=== PATIENT | female | born 1975 | race Caucasian/White ===

== ENCOUNTER 2023-07-04 14:42 | Outpatient (OUT) | payer OTHER, SELFPAY ==
--- NOTE | 2023-07-04 | XR_ITS ---
The [address] [address] Patient Name: PRANAV PEREZ MRN: [id number] date: 1975 Sex: F Assigned Patient Location: [facility] Current Patient Location: Accession/Order Number: [id number] Exam Date: 07/04/2023 15:17 Report Date: 07/05/2023 11:37 At the request of: ALENA PETERSON Procedure: XR ankle EDY min 3V EXAMINATION: XR foot EDY min 3V, XR ankle EDY min 3V HISTORY: BILATERAL FOOT AND ANKLE PAIN , lateral left ankle pain, medial right foot pain COMPARISON: No relevant comparison available. FINDINGS: RIGHT FINDINGS: BONES: Small calcaneal plantar spur. No significant arthropathy or acute abnormality. SOFT TISSUES: No visible soft tissue swelling. OTHER: Negative. LEFT FINDINGS: BONES: Small calcaneal plantar spur. No significant arthropathy or acute abnormality. SOFT TISSUES: No visible soft tissue swelling. OTHER: Negative. XR/XR ankle EDY min 3V IMPRESSION: RIGHT CONCLUSION: No acute abnormality or significant degenerative changes of the ankle and foot. LEFT CONCLUSION: No acute abnormality or significant degenerative changes of the ankle and foot. Electronically authenticated by: PAMELA BAILON Date: 07/05/2023 11:37
--- NOTE | 2023-07-04 | XR_ITS ---
The [address] [address] Patient Name: PRANAV PEREZ MRN: [id number] date: 1975 Sex: F Assigned Patient Location: [facility] Current Patient Location: Accession/Order Number: [id number] Exam Date: 07/04/2023 15:00 Report Date: 07/05/2023 11:37 At the request of: ALENA PETERSON Procedure: XR foot EDY min 3V EXAMINATION: XR foot EDY min 3V, XR ankle EDY min 3V HISTORY: BILATERAL FOOT AND ANKLE PAIN , lateral left ankle pain, medial right foot pain COMPARISON: No relevant comparison available. FINDINGS: RIGHT FINDINGS: BONES: Small calcaneal plantar spur. No significant arthropathy or acute abnormality. SOFT TISSUES: No visible soft tissue swelling. OTHER: Negative. LEFT FINDINGS: BONES: Small calcaneal plantar spur. No significant arthropathy or acute abnormality. SOFT TISSUES: No visible soft tissue swelling. OTHER: Negative. XR/XR foot EDY min 3V IMPRESSION: RIGHT CONCLUSION: No acute abnormality or significant degenerative changes of the ankle and foot. LEFT CONCLUSION: No acute abnormality or significant degenerative changes of the ankle and foot. Electronically authenticated by: PAMELA BAILON Date: 07/05/2023 11:37
== END 2023-07-04 14:43 | disposition home or self-care (01) ==
LOC: RAD 14:43
PROVIDERS: Visit Provider Podiatrist Foot & Ankle Surgery
DX: M25.572 Pain in left ankle and joints of left foot (principal); M25.571 Pain in right ankle and joints of right foot; M79.672 Pain in left foot; M79.671 Pain in right foot; M77.31 Calcaneal spur, right foot; M77.32 Calcaneal spur, left foot
CPT/HCPCS: 73610; 73630

== ENCOUNTER 2024-04-17 13:47 | Outpatient (OUT) | payer OTHER, SELFPAY ==
--- NOTE | 2024-04-17 | XR_ITS ---
The [address] [address] Patient Name: PRANAV PEREZ MRN: [id number] date: 1975 Sex: F Assigned Patient Location: Current Patient Location: Accession/Order Number: [id number] Exam Date: 04/17/2024 13:48 Report Date: 04/22/2024 07:27 At the request of: ALENA PETERSON Procedure: XR foot RT min 3V PROCEDURE: XR foot RT min 3V COMPARISON: 07/04/2023 HISTORY: RIGHT FOOT PAIN FINDINGS: BONES:No fracture, acute abnormality, or significant arthropathy. Minimal enthesopathic spurring of the calcaneus at the Achilles and plantar insertions SOFT TISSUES:Negative. No visible soft tissue swelling. EFFUSION:None visible. OTHER: Negative. XR/XR foot RT min 3V IMPRESSION: No acute abnormality Electronically authenticated by: PREET BYRD Date: 04/22/2024 07:27
--- OUTSIDE RECORDS SUMMARY | 2024-04-17 14:01 | XMS_ITS | CCD ---
Author Organization [facility] Care Team Providers Care Events Associate Name Role Phone WENDY JOY Primary Care Unavailable TIANA ROSALES Referring Unavailable Wendy Joy Primary Care Provider Tere Solis Unavailable NON STAFF Primary Care Provider UnavailDO Matthew Rachel Attending Provider Kady Stout Unavailable MD Kady Stout Attending Provider [phone] NON STAFF Primary Care Provider UnavailMD Kady Méndez Attending Provider NON STAFF Primary Care Provider UnavailJaya Dupree Admitting Unavailable Jaya Abdi Attending Unavailable Kady Stout Primary Care Unavailable Kady Stout Admitting Unavailable Kady Stout Attending Unavailable NON STAFF Primary Care Unavailable Kady Stout Admitting Unavailable Kady Stout Attending Unavailable NON STAFF Primary Care Unavailable Matthew Thakkar Admitting Unavailable Peyman Matthew LINTON Attending Unavailable NON STAFF Primary Care Unavailable Allergies Allergy Classification Reported Allergen(s) Allergy Type Date of Onset Reaction(s) Facility (1 source) Ethinyl Estradiol / Etonogestrel Drug Allergy 1 [place], [place] (1 source) oxaprozin Drug Allergy 6 [place] (5 sources) Doxycycline Drug Allergy [facility] Conjure Other (1 source) Doxycycline Drug Allergy 4 [facility] Repository Medications Current Medications Medication Drug Class(es) Dates Sig (Normalized) Sig (Original) acetaminophen 500 mg / diphenhydrAMINE hydrochloride 25 mg oral tablet (1 source) Histamine-1 Receptor Antagonist take 25-500 mg by mouth once daily as needed diphenhydrAMINE- APAP, sleep, (TYLENOL PM EXTRA STRENGTH) 25-500 MG tablet Take 1 tablet by mouth nightly as needed for Sleep 0 Active [id number] 200 actuat albuterol 0.09 mg/actuat metered dose inhaler (6 sources) beta2-Adrenergic Agonist Start: 12-11-2023 take 1 puff(s) by inhalation every four hours Albuterol Sulfate Active 2 PUFF INHALATION Every 4 hours December 11, 2023 12:00am Start: 06-20-2022 take 2 puff(s) by in halation every four hours as needed Albuterol Sulfate HFA 108 (90 Base) MCG/ACT 2 puffs as needed Inhalation every 4 hrs Jun, Active Start: 06-20-2022 take 2 puff(s) by in halation every four hours as needed Albuterol Sulfate HFA 108 (90 Base) MCG/ACT 2 puffs as needed Inhalation every 4 hrs Jun, Active Start: 06-20-2022 take 2 puff(s) by in halation every four hours as needed Albuterol Sulfate HFA 108 (90 Base) MCG/ACT 2 puffs as needed Inhalation every 4 hrs Jun, Active Bioflavonoid Products (BIOFLEX PO) (1 source) take 2 tablets by mouth once daily Bioflavonoid Products (BIOFLEX PO) Take by mouth daily 2 tabs OTC 0 Active CALCIUM-VITAMIN D PO (1 source) take 0.75 mg by mouth once daily CALCIUM-VITAMIN D PO Take by mouth daily 600/800 mg OTC 0 Active Chlorpheniramine (1 source) Histamine-1 Receptor Antagonist Chlorpheniramine Maleate (ALLERGY PO) Take by mouth daily OTC 0 Active fluticasone propionate 0.05 mg/actuat metered dose nasal spray (1 source) Corticosteroid fluticasone (CLAY NASE) 50 MCG/ACT nasal spray 1 spray by Nasal route daily bilat nares 0 Active ibuprofen 200 mg oral tablet (1 source) Nonsteroidal Anti-inflammatory Drug take 1 tablet by mouth every six hours as needed for pain ibuprofen (ADVIL;MOTRIN) 200 MG tablet Take 200 mg by mouth every 6 hours as needed for Pain OTC 0 Active meloxicam 15 mg oral tablet (1 source) Nonsteroidal Anti-inflammatory Drug Start : 12-11 take 30 mg by mouth once daily Meloxicam Active 30 MG PO Daily December 12, 2023 12:00am methylPREDNISolone 4 mg oral tablet (1 source) Corticosteroid Start : 06-20 methylPREDNISolone 4 MG as directed Orally Once a day for 6 days Jun, Active naproxen 500 mg oral tablet (1 source) Nonsteroidal Anti-inflammatory Drug Start : 05-04 take 1 tablet by mouth twice daily at mealtime naproxen (NAPROSYN) 500 MG tablet Take 500 mg by mouth 2 times daily (with meals) 0 05/04/2015 Active omeprazole 20 mg delayed release oral capsule (1 source) Proton Pump Inhibitor Start : 12-11 take 20 mg by mouth once daily Omeprazole Active 20 MG PO Daily December 12, 2023 12:00am rosuvastatin calcium 20 mg oral tablet (3 sources) HMG-CoA Reductase Inhibitor take 1 tablet by mouth every twenty-four hours Crestor 20 MG 1 tablet Orally Once a day for 90 days Active simvastatin 5 mg oral tablet (1 source) HMG-CoA Reductase Inhibitor Start : 12-11 take 5 mg by mouth every other day Simvastatin Active 5 MG PO .qod December 12, 2023 12:00am ZINC ASPARTATE (1 source) ZINC ASPARTATE P O Take by mouth 0 Active Completed/Discontinued Medications Medication Drug Class(es) Dates Sig (Normalized) Sig (Original) Acetaminophen (5 sources) Tylenol Not-Taki ng/PRN Tylenol Not-Taki ng amoxicillin 875 mg / clavulanate 125 mg oral tablet (5 sources) Penicillin-class Antibacterial take 1 tablet by mouth every twelve hours Amoxicillin-Pot Clavulanate 875-125 MG 1 tablet Orally every 12 hrs for 10 day(s) Not-Taking/PRN Ascorbic Acid (6 sources) Vitamin C Vitamin C Not-Taking/PRN Vitamin C Not-Ta sung take 2 tablets by mouth once lisa ly Ascorbic Acid (VITAMIN C) 500 MG tablet Take 1,000 mg by mouth daily OTC 0 Active Brompheniramine / Pseudoephedrine (5 sources) alpha-Adrenergic Agonist take 10 mL by mouth every four hours as needed Bromfed DM 30-2-10 MG/5ML 10 ml as needed Orally every 4 hrs Not-Taking/PRN take 10 mL by mouth every four hours as needed Bromfed DM 30-2-10 MG/5ML 10 ml as neede d Orally every 4 hrs Not-Taking Calcium (5 sources) Phosphate Binder, Calcium Calciu m 1000 + D Not-Taking/PRN Calcium 1000 + D Not-Taking lidocaine 0.05 mg/mg topical ointment (5 sources) Antiarrhythmic, Amide Local Anesthetic Start: 02-22-2017 Lidocaine 5 % 1 application to affected area as needed Externally Three times a day Feb, Not-Taking/PRN valACYclovir 500 mg oral tablet (5 sources) Herpesvirus Nucleoside Analog DNA Polymerase Inhibitor, Herpes Simplex Virus Nucleoside Analog DNA Polymerase Inhibitor, Herpes Zoster Virus Nucleoside Analog DNA Polymerase Inhibitor Start: 02-22-2017 take 2 tablets by mouth every twelve hours valACYclovir HCl 500 MG 2 tablets Orally every 12 hrs for 7 days Feb, Not-Taking/PRN vitamin B12 (5 sources) Vitamin B12 Vitamin B 12 Not-Taking/PRN Vitamin B 12 Not -Taking Vitamin D (5 sources) Vitamin D Not-Ta sung/PRN Vitamin D Not-Ta sung Problems Active Problems Problem Classification Problem Date Documented Date Episodic/Chronic Chronic obstructive pulmonary disease and bronchiectasis (1 source) Bronchitis, not specified as acute or chronic Episodic Immunizations and screening for infectious disease (8 sources) Contact with and (suspected) exposure to other viral communicable diseases; Translations: [Contact with or suspected exposure to other viral communicable disease] Onset: 01-10-2024 Episodic Other connective tissue disease (1 source) Pain in left foot Episodic Other nutritional; endocrine; and metabolic disorders (1 source) Body mass index 30+ - obesity; Translations: [BMI 33.0-33.9,adult] Onset: 06-11-2015 06-11-2015 Chronic Other screening for suspected conditions (not mental disorders or infectious disease) (8 sources) Encounter for screening for malignant neoplasm of colon; Translations: [Encounter for screening mammogram for malignant neoplasm of breast] Onset: 10-18-2023 Episodic Rheumatoid arthritis and related disease (2 sources) Rheumatoid arthritis; Translations: [Rheumatoid arthritis, unspecified] 12-11-2023 Chronic Unclassified (1 source) Patient encounter status; Translations: [Women's annual routine gynecological examination] Viral infection (1 source) Herpes simplex type 1 infection; Translations: [Herpesviral infection, unspecified] 12-12-2023 Episodic Past or Other Problems Problem Classification Problem Date Documented Da te Episodic/Chronic Contraceptive and procreative management (1 source) IUD contraception; Translations: [IUD (intrauterine device) in place] Onset: 06-11-2015 06-11-2015 Episodic Viral infection (1 source) COVID-19 Results Test Name Value Interpretation Reference Range Facility FADI Antinuclear Antibodieson 01-10-2024 Antinuclear Abs, IFA Negative Normal . [facility] Comment on above: Result Comment: Nega tive <1:80 Borderline 1:80 Positive >1:80 ICAP nomenclature: AC-0 For more information about Hep-2 cell patterns use ANApatterns.org, the official website for the International Consensus on Antinuclear Antibody (FADI) Patterns (ICAP). Performed at: [facility] [place] [id number] Obstetrics Teacher: Leonard Moreno PhD, Phone: [phone] Performed By: #### S JOGRENS, CHROMATIN, CCP, CENTROME, CH50, C3, C4, NIX, JO1, FADI, ADNA, [id number], ANTIR, RA, HISAB ####[facility] ,#### CRP, CMP, CK, ESR, [id number], PTH, ADDONUAPLUS, CBC ####[place] [id number] [address] Antinuclear Abs, IFA Positive Critically abnormal . [facility] Comment on above: Result Comment: Nega tive <1:80 Borderline 1:80 Positive >1:80 Performed By: #### M ISC LAB ####[facility] [id number]#### FADI ####[facility] , Homogeneous Pattern 1:160 High . [facility] Comment on above: Result Comment: ICAP nomenclature: AC-1 Performed By: #### M ISC LAB ####[address]#### FADI ####[facility] , Note 1 Normal . [facility] Comment on above: Result Comment: Lexiebushra ledbetter Potential Disease Association Homogeneous Systemic Lupus Erythematosus, Drug Induced Systemic Lupus Erythematosus, Chronic Autoimmune hepatitis, Juvenile Idiopathic Arthritis Speckled Sjogren Syndrome, Systemic Lupus Erythematosus, Subacute Cutaneous Lupus, Lupus, Congenital Heart Block, Mixed Connective Tissue Disease, Scleroderma-diffuse, Scleroderma-Autoimmune Myositis Overlap Syndrome, Systemic Lupus Xpbvibumsdkgn-Neamxximmtv-Ovnlyczbfh Myositis Overlap Syndrome, Systemic Autoimmune Rheumatic Disease, Undifferentiated Connective Tissue Disease Nucleolar Systemic Sclerosis, Scleroderma-Autoimmune Myositis Overlap Syndrome, Sjogren Syndrome, Raynaud phenomenon, Pulmonary Arterial Hypertension, Systemic Autoimmune Rheumatic Disease, Cancer Centromere Scleroderma-CREST, Limited Cutaneous SSc, Raynaud's Phenomenon, Primary Biliary Cholangitis Nuclear Dot Primary Biliary Cholangitis Nuclear Primary Biliary Cholangitis, Autoimmune Membrane Hepatitis/Liver disease, Systemic Autoimmune Rheumatic Disease, Autoimmune Cytopenias, Linear Scleroderma, Antiphospholipid Syndrome Performed at: [address] [id number] Obstetrics Teacher: Leonard Moreno PhD, Phone: [phone] PERFORMED BY: [place] [address] PATHOLOGIST CONCRETE PUMP OPERATOR HELPER SOILA JOHNS M.D. Performed By: #### M ISC LAB ####[address]#### FADI ####[facility] , Anti-Centromere B Antibodies on 01-10-2024 Anti-Centromere B Antibodies <0.2 Normal 0.0-0.9 [facility] Comment on above: Result Comment: Perf ormed at: [address] [id number] Obstetrics Teacher: Leonard Moreno PhD, Phone: [phone] Performed By: #### S JOGRENS, CHROMATIN, CCP, CENTROME, CH50, C3, C4, NIX, JO1, FADI, ADNA, [id number], ANTIR, RA, HISAB ####[facility] ,#### CRP, CMP, CK, ESR, [id number], PTH, ADDONUAPLUS, CBC ####[address] Anti-RNPon 01-10-2024 Anti-HYDRO OPERATOR <0.2 Normal 0.0-0.9 [facility] Comment on above: Performed By: #### S JOGRENS, CHROMATIN, CCP, CENTROME, CH50, C3, C4, NIX, JO1, FADI, ADNA, [id number], ANTIR, RA, HISAB ####[facility] ,#### CRP, CMP, CK, ESR, [id number], PTH, ADDONUAPLUS, CBC ####[address] Anti-Nix Antibodieson 05- Anti-Nix Antibodies <0.2 Normal 0.0-0.9 [facility] Comment on above: Performed By: #### S JOGRENS, CHROMATIN, CCP, CENTROME, CH50, C3, C4, NIX, JO1, FADI, ADNA, [id number], ANTIR, RA, HISAB ####[facility] ,#### CRP, CMP, CK, ESR, [id number], PTH, ADDONUAPLUS, CBC ####[address] Anti-dsDNA(DBL)Abon 01-10-20 24 Anti-dsDNA(DBL)Ab 1 Normal 0-9 [facility] Comment on above: Result Comment: Nega tive <5 Equivocal 5 - 9 Positive >9 Performed By: #### S JOGRENS, CHROMATIN, CCP, CENTROME, CH50, C3, C4, NIX, JO1, FADI, ADNA, [id number], ANTIR, RA, HISAB ####[facility] ,#### CRP, CMP, CK, ESR, [id number], PTH, ADDONUAPLUS, CBC ####[address] C-Reactive Proteinon 024 C-Reactive Protein 0.6 mg/dL High 0.0-0.5 [facility] Comment on above: Performed By: #### S JOGRENS, CHROMATIN, CCP, CENTROME, CH50, C3, C4, NIX, JO1, FADI, ADNA, [id number], ANTIR, RA, HISAB #### [facility] , #### CRP, CMP, CK, ESR, [id number], PTH, ADDONUAPLUS, CBC #### [facility] [address] Chromatin Antibodyon 024 Chromatin Antibody <0.2 Normal 0.0-0.9 [facility] Comment on above: Result Comment: PERF ORMED BY: [facility] [address] [facility] [place] [address] PATHOLOGIST CONCRETE PUMP OPERATOR HELPER SOILA JOHNS M.D. Performed By: #### S JOGRENS, CHROMATIN, CCP, CENTROME, CH50, C3, C4, NIX, JO1, FADI, ADNA, [id number], ANTIR, RA, HISAB ####[facility] ,#### CRP, CMP, CK, ESR, [id number], PTH, ADDONUAPLUS, CBC ####[place] [id number] [address] Complement C3on 01-10-2024 Complement C3 161 mg/dL Normal 82-167 [facility] Comment on above: Performed By: #### S JOGRENS, CHROMATIN, CCP, CENTROME, CH50, C3, C4, NIX, JO1, FADI, ADNA, [id number], ANTIR, RA, HISAB ####[facility] ,#### CRP, CMP, CK, ESR, [id number], PTH, ADDONUAPLUS, CBC ####[place] [id number] [facility] Complement C4on 01-10-2024 Complement C4 34 mg/dL Normal 12-38 [facility] Comment on above: Performed By: #### S JOGRENS, CHROMATIN, CCP, CENTROME, CH50, C3, C4, NIX, JO1, FADI, ADNA, [id number], ANTIR, RA, HISAB ####[facility] ,#### CRP, CMP, CK, ESR, [id number], PTH, ADDONUAPLUS, CBC ####[address] Complement Total (CH50)on Complement Total (CH50) >60 Normal >41 [facility] Comment on above: Result Comment: Age Male Female 1 - 30 days Not Estab. Not Estab. 31 days - 6 months >32 >20 7 months - 17 years >39 >39 >17 years >41 >41 NOTE: The adult ( >17 years ) reference interval range is used to flag abnormals on this report. If the patient is 17 years old or younger, use the table above to determine out of range values. Performed at: - [facility] [id number] Obstetrics Teacher: Leonard Moreno PhD, Phone: [phone] PERFORMED BY: [facility] [address] [place] [address] PATHOLOGIST CONCRETE PUMP OPERATOR HELPER SOILA JOHNS M.D. Performed By: #### S JOGRENS, CHROMATIN, CCP, CENTROME, CH50, C3, C4, NIX, JO1, FADI, ADNA, [id number], ANTIR, RA, HISAB ####[facility] ,#### CRP, CMP, CK, ESR, [id number], PTH, ADDONUAPLUS, CBC ####[facility] [id number] Complete Blood Count Auto Di ffon 01-10-2024 Basophils (Bld) [#/Vol] 0.1 10*3/uL Normal 0.0-0.2 [facility] Comment on above: Performed By: #### S JOGRENS, CHROMATIN, CCP, CENTROME, CH50, C3, C4, NIX, JO1, FADI, ADNA, [id number], ANTIR, RA, HISAB #### [facility] , #### CRP, CMP, CK, ESR, [id number], PTH, ADDONUAPLUS, CBC #### [facility] [address] Basophils/100 WBC (Bld) 0.7 % Normal . T megan [facility] Comment on above: Performed By: #### S JOGRENS, CHROMATIN, CCP, CENTROME, CH50, C3, C4, NIX, JO1, FADI, ADNA, [id number], ANTIR, RA, HISAB #### [facility] , #### CRP, CMP, CK, ESR, [id number], PTH, ADDONUAPLUS, CBC #### [address] Eosinophils (Bld) [#/Vol] 0.1 10*3/uL Normal 0.0-0.45 [facility] Comment on above: Performed By: #### S JOGRENS, CHROMATIN, CCP, CENTROME, CH50, C3, C4, NIX, JO1, FADI, ADNA, [id number], ANTIR, RA, HISAB #### [facility] , #### CRP, CMP, CK, ESR, [id number], PTH, ADDONUAPLUS, CBC #### [address] Eosinophils/100 WBC (Bld) 1.0 % Normal . [facility] Comment on above: Performed By: #### S JOGRENS, CHROMATIN, CCP, CENTROME, CH50, C3, C4, NIX, JO1, FADI, ADNA, [id number], ANTIR, RA, HISAB #### [facility] , #### CRP, CMP, CK, ESR, [id number], PTH, ADDONUAPLUS, CBC #### [address] Erythrocyte distribution width (RBC) [Ratio] 13.5 % Normal 11.9-15.3 [facility] Comment on above: Performed By: #### S JOGRENS, CHROMATIN, CCP, CENTROME, CH50, C3, C4, NIX, JO1, FADI, ADNA, [id number], ANTIR, RA, HISAB #### [facility] , #### CRP, CMP, CK, ESR, [id number], PTH, ADDONUAPLUS, CBC #### [address] Hematocrit (Bld) [Volume fraction] 41.2 % Normal 34.0-46.4 [facility] Comment on above: Performed By: #### S JOGRENS, CHROMATIN, CCP, CENTROME, CH50, C3, C4, NIX, JO1, FADI, ADNA, [id number], ANTIR, RA, HISAB #### [facility] , #### CRP, CMP, CK, ESR, [id number], PTH, ADDONUAPLUS, CBC #### [address] Hemoglobin (Bld) [Mass/Vol] 14.0 g/dL Normal 11.8-15.4 [facility] Comment on above: Performed By: #### S JOGRENS, CHROMATIN, CCP, CENTROME, CH50, C3, C4, NXI, JO1, FADI, ADNA, [id number], ANTIR, RA, HISAB #### [facility] , #### CRP, CMP, CK, ESR, [id number], PTH, ADDONUAPLUS, CBC #### [address] Lymphocytes (Bld) [#/Vol] 1.5 10*3/uL Normal 1.00-4.8 [facility] Comment on above: Performed By: #### S JOGRENS, CHROMATIN, CCP, CENTROME, CH50, C3, C4, NIX, JO1, FADI, ADNA, [id number], ANTIR, RA, HISAB #### [facility] , #### CRP, CMP, CK, ESR, [id number], PTH, ADDONUAPLUS, CBC #### [address] Lymphocytes/100 WBC (Bld) 19.8 % Normal . [facility] Comment on above: Performed By: #### S JOGRENS, CHROMATIN, CCP, CENTROME, CH50, C3, C4, NIX, JO1, FADI, ADNA, [id number], ANTIR, RA, HISAB #### [facility] , #### CRP, CMP, CK, ESR, [id number], PTH, ADDONUAPLUS, CBC #### [facility] [address] MCH (RBC) [Entitic mass] 30.2 pg Normal 24.7-34.3 [facility] Comment on above: Performed By: #### S JOGRENS, CHROMATIN, CCP, CENTROME, CH50, C3, C4, NIX, JO1, FADI, ADNA, [id number], ANTIR, RA, HISAB #### [facility] , #### CRP, CMP, CK, ESR, [id number], PTH, ADDONUAPLUS, CBC #### [address] MCV (RBC) [Entitic vol] 89.2 fL Normal 80-100 T he [facility] Comment on above: Performed By: #### S JOGRENS, CHROMATIN, CCP, CENTROME, CH50, C3, C4, NIX, JO1, FADI, ADNA, [id number], ANTIR, RA, HISAB #### [facility] , #### CRP, CMP, CK, ESR, [id number], PTH, ADDONUAPLUS, CBC #### [address] Mean Corpuscular HGB Conc 33.9 g/dL Normal 32.0-35.0 [facility] Comment on above: Performed By: #### S JOGRENS, CHROMATIN, CCP, CENTROME, CH50, C3, C4, NIX, JO1, FADI, ADNA, [id number], ANTIR, RA, HISAB #### [facility] , #### CRP, CMP, CK, ESR, [id number], PTH, ADDONUAPLUS, CBC #### [address] Monocytes (Bld) [#/Vol] 0.3 10*3/uL Normal 0.0-0.8 [facility] Comment on above: Performed By: #### S JOGRENS, CHROMATIN, CCP, CENTROME, CH50, C3, C4, NIX, JO1, FADI, ADNA, [id number], ANTIR, RA, HISAB #### [facility] , #### CRP, CMP, CK, ESR, [id number], PTH, ADDONUAPLUS, CBC #### [address] Monocytes/100 WBC (Bld) 4.4 % Normal . T he [facility] Comment on above: Performed By: #### S JOGRENS, CHROMATIN, CCP, CENTROME, CH50, C3, C4, NIX, JO1, FADI, ADNA, [id number], ANTIR, RA, HISAB #### [facility] , #### CRP, CMP, CK, ESR, [id number], PTH, ADDONUAPLUS, CBC #### [address] Neutrophils (Bld) [#/Vol] 5.8 10*3/uL Normal 1.8-7.7 [facility] Comment on above: Performed By: #### S JOGRENS, CHROMATIN, CCP, CENTROME, CH50, C3, C4, NIX, JO1, FADI, ADNA, [id number], ANTIR, RA, HISAB #### [facility] , #### CRP, CMP, CK, ESR, [id number], PTH, ADDONUAPLUS, CBC #### [address] Neutrophils/100 WBC (Bld) 74.1 % Normal . [facility] Comment on above: Performed By: #### S JOGRENS, CHROMATIN, CCP, CENTROME, CH50, C3, C4, NIX, JO1, FADI, ADNA, [id number], ANTIR, RA, HISAB #### [facility] , #### CRP, CMP, CK, ESR, [id number], PTH, ADDONUAPLUS, CBC #### [address] NRBC% 0.1 /100{WBC} Normal 0-0.5 [facility] Comment on above: Performed By: #### S JOGRENS, CHROMATIN, CCP, CENTROME, CH50, C3, C4, NIX, JO1, FADI, ADNA, [id number], ANTIR, RA, HISAB #### [facility] , #### CRP, CMP, CK, ESR, [id number], PTH, ADDONUAPLUS, CBC #### [address] Platelet mean volume (Bld) [Entitic vol] 8.3 fL Normal 6.3-10.7 [facility] Comment on above: Performed By: #### S JOGRENS, CHROMATIN, CCP, CENTROME, CH50, C3, C4, NIX, JO1, FADI, ADNA, [id number], ANTIR, RA, HISAB #### [facility] , #### CRP, CMP, CK, ESR, [id number], PTH, ADDONUAPLUS, CBC #### [address] Platelets (Bld) [#/Vol] 360 10*3/uL Normal 150-450 [facility] Comment on above: Performed By: #### S JOGRENS, CHROMATIN, CCP, CENTROME, CH50, C3, C4, NIX, JO1, FADI, ADNA, [id number], ANTIR, RA, HISAB #### [facility] , #### CRP, CMP, CK, ESR, [id number], PTH, ADDONUAPLUS, CBC #### [address] RBC (Bld) [#/Vol] 4.62 10*6/uL Normal 3.60-5.00 [facility] Comment on above: Performed By: #### S JOGRENS, CHROMATIN, CCP, CENTROME, CH50, C3, C4, NIX, JO1, FADI, ADNA, [id number], ANTIR, RA, HISAB #### [facility] , #### CRP, CMP, CK, ESR, [id number], PTH, ADDONUAPLUS, CBC #### [address] WBC (Bld) [#/Vol] 7.8 10*3/uL Normal 3.8-11.6 [facility] Comment on above: Performed By: #### S JOGRENS, CHROMATIN, CCP, CENTROME, CH50, C3, C4, NIX, JO1, FADI, ADNA, [id number], ANTIR, RA, HISAB #### [facility] , #### CRP, CMP, CK, ESR, [id number], PTH, ADDONUAPLUS, CBC #### [address] [facility] 01-10-2024 Albumin [Mass/Vol] 4.5 g/dL Normal 3.5-5.7 [facility] Comment on above: Performed By: #### S JOGRENS, CHROMATIN, CCP, CENTROME, CH50, C3, C4, NIX, JO1, FADI, ADNA, [id number], ANTIR, RA, HISAB #### [facility] , #### CRP, CMP, CK, ESR, [id number], PTH, ADDONUAPLUS, CBC #### [address] Albumin/Globulin [Mass ratio] 2.0 {ratio} Normal [facility] Comment on above: Performed By: #### S JOGRENS, CHROMATIN, CCP, CENTROME, CH50, C3, C4, NIX, JO1, FADI, ADNA, [id number], ANTIR, RA, HISAB #### [facility] , #### CRP, CMP, CK, ESR, [id number], PTH, ADDONUAPLUS, CBC #### [address] ALP [Catalytic activity/Vol] 60 U/L Normal 34-104 [facility] Comment on above: Performed By: #### S JOGRENS, CHROMATIN, CCP, CENTROME, CH50, C3, C4, NIX, JO1, FADI, ADNA, [id number], ANTIR, RA, HISAB #### [facility] , #### CRP, CMP, CK, ESR, [id number], PTH, ADDONUAPLUS, CBC #### [address] ALT [Catalytic activity/Vol] 15 U/L Normal 7-52 [facility] Comment on above: Performed By: #### S JOGRENS, CHROMATIN, CCP, CENTROME, CH50, C3, C4, NIX, JO1, FADI, ADNA, [id number], ANTIR, RA, HISAB #### [facility] , #### CRP, CMP, CK, ESR, [id number], PTH, ADDONUAPLUS, CBC #### [address] Anion gap [Moles/Vol] 11.0 mmol/L Normal 6.0-15.0 [facility] Comment on above: Performed By: #### S JOGRENS, CHROMATIN, CCP, CENTROME, CH50, C3, C4, NIX, JO1, FADI, ADNA, [id number], ANTIR, RA, HISAB #### [facility] , #### CRP, CMP, CK, ESR, [id number], PTH, ADDONUAPLUS, CBC #### [address] AST [Catalytic activity/Vol] 16 U/L Normal 13-39 [facility] Comment on above: Performed By: #### S JOGRENS, CHROMATIN, CCP, CENTROME, CH50, C3, C4, NIX, JO1, FADI, ADNA, [id number], ANTIR, RA, HISAB #### [facility] , #### CRP, CMP, CK, ESR, [id number], PTH, ADDONUAPLUS, CBC #### [address] Bilirubin [Mass/Vol] 0.3 mg/dL Normal 0.3-1.0 [facility] Comment on above: Performed By: #### S JOGRENS, CHROMATIN, CCP, CENTROME, CH50, C3, C4, NIX, JO1, FADI, ADNA, [id number], ANTIR, RA, HISAB #### [facility] , #### CRP, CMP, CK, ESR, [id number], PTH, ADDONUAPLUS, CBC #### [address] Calcium [Mass/Vol] 9.2 mg/dL Normal 8.6-10.3 [facility] Comment on above: Performed By: #### S JOGRENS, CHROMATIN, CCP, CENTROME, CH50, C3, C4, NIX, JO1, FADI, ADNA, [id number], ANTIR, RA, HISAB #### [facility] , #### CRP, CMP, CK, ESR, [id number], PTH, ADDONUAPLUS, CBC #### [address] Chloride [Moles/Vol] 103 mmol/L Normal 98-107 [facility] Comment on above: Performed By: #### S JOGRENS, CHROMATIN, CCP, CENTROME, CH50, C3, C4, NIX, JO1, FADI, ADNA, [id number], ANTIR, RA, HISAB #### [facility] , #### CRP, CMP, CK, ESR, [id number], PTH, ADDONUAPLUS, CBC #### [address] CO2 [Moles/Vol] 27.2 mmol/L Normal 21.0-31.0 [facility] Comment on above: Performed By: #### S JOGRENS, CHROMATIN, CCP, CENTROME, CH50, C3, C4, NIX, JO1, FADI, ADNA, [id number], ANTIR, RA, HISAB #### [facility] , #### CRP, CMP, CK, ESR, [id number], PTH, ADDONUAPLUS, CBC #### [address] Creatinine [Mass/Vol] 0.80 mg/dL Normal 0.60-1.20 [facility] Comment on above: Performed By: #### S JOGRENS, CHROMATIN, CCP, CENTROME, CH50, C3, C4, NIX, JO1, FADI, ADNA, [id number], ANTIR, RA, HISAB #### [facility] , #### CRP, CMP, CK, ESR, [id number], PTH, ADDONUAPLUS, CBC #### [address] GFR/1.73 sq M.predicted MDRD (S/P/Bld) [Vol rate/Area] mL/min/{1.73_m2} Normal [facility] Comment on above: Performed By: #### S JOGRENS, CHROMATIN, CCP, CENTROME, CH50, C3, C4, NIX, JO1, FADI, ADNA, [id number], ANTIR, RA, HISAB #### [facility] , #### CRP, CMP, CK, ESR, [id number], PTH, ADDONUAPLUS, CBC #### [address] Globulin (S) [Mass/Vol] 2.3 g/dL Normal [facility] Comment on above: Performed By: #### S JOGRENS, CHROMATIN, CCP, CENTROME, CH50, C3, C4, NIX, JO1, FADI, ADNA, [id number], ANTIR, RA, HISAB #### [facility] , #### CRP, CMP, CK, ESR, [id number], PTH, ADDONUAPLUS, CBC #### [address] Glucose [Mass/Vol] 120 mg/dL High 70-100 [facility] Comment on above: Result Comment: [facility] Glucose Reference Range is dependent on time and content of last meal. Glucose of more than 200 mg/dL in a nonstressed, ambulatory subject supports the diagnosis of Diabetes Mellitus. ADA recommended reference range Performed By: #### S JOGRENS, CHROMATIN, CCP, CENTROME, CH50, C3, C4, NIX, JO1, FADI, ADNA, [id number], ANTIR, RA, HISAB #### [facility] , #### CRP, CMP, CK, ESR, [id number], PTH, ADDONUAPLUS, CBC #### [address] Potassium [Moles/Vol] 4.2 mmol/L Normal 3.5-5.1 [facility] Comment on above: Performed By: #### S JOGRENS, CHROMATIN, CCP, CENTROME, CH50, C3, C4, NIX, JO1, FADI, ADNA, [id number], ANTIR, RA, HISAB #### [facility] , #### CRP, CMP, CK, ESR, [id number], PTH, ADDONUAPLUS, CBC #### [address] Protein [Mass/Vol] 6.8 g/dL Normal 6.4-8.9 [facility] Comment on above: Performed By: #### S JOGRENS, CHROMATIN, CCP, CENTROME, CH50, C3, C4, NIX, JO1, FADI, ADNA, [id number], ANTIR, RA, HISAB #### [facility] , #### CRP, CMP, CK, ESR, [id number], PTH, ADDONUAPLUS, CBC #### [address] Sodium [Moles/Vol] 137 mmol/L Normal 136-145 [facility] Comment on above: Performed By: #### S JOGRENS, CHROMATIN, CCP, CENTROME, CH50, C3, C4, NIX, JO1, FADI, ADNA, [id number], ANTIR, RA, HISAB #### [facility] , #### CRP, CMP, CK, ESR, [id number], PTH, ADDONUAPLUS, CBC #### [place] [id number] [facility] Urea nitrogen [Mass/Vol] 12 mg/dL Normal 7-25 [facility] Comment on above: Performed By: #### S JOGRENS, CHROMATIN, CCP, CENTROME, CH50, C3, C4, NIX, JO1, FADI, ADNA, [id number], ANTIR, RA, HISAB #### [facility] , #### CRP, CMP, CK, ESR, [id number], PTH, ADDONUAPLUS, CBC #### [place] [id number] [facility] Creatine Kinaseon 01-10-2024 CK [Catalytic activity/Vol] 51 U/L Normal 30-223 [facility] Comment on above: Result Comment: PERF ORMED BY: [place] [address] PATHOLOGIST CONCRETE PUMP OPERATOR HELPER SOILA JOHNS M.D. Performed By: #### S JOGRENS, CHROMATIN, CCP, CENTROME, CH50, C3, C4, NIX, JO1, FADI, ADNA, [id number], ANTIR, RA, HISAB #### [facility] , #### CRP, CMP, CK, ESR, [id number], PTH, ADDONUAPLUS, CBC #### [place] [id number] [facility] Cyclic Citrulliated Pep Abon 01-10-2024 Cyclic Citrulliated Pep Ab 7 Normal 0-19 [facility] Comment on above: Result Comment: Nega tive <20 Weak positive 20 - 39 Moderate positive 40 - 59 Strong positive >59 Performed at: - [facility] [id number] Obstetrics Teacher: Leonard Moreno PhD, Phone: [phone] Performed By: #### S JOGRENS, CHROMATIN, CCP, CENTROME, CH50, C3, C4, NIX, JO1, FADI, ADNA, [id number], ANTIR, RA, HISAB ####[facility] ,#### CRP, CMP, CK, ESR, [id number], PTH, ADDONUAPLUS, CBC ####[facility] Dipstick and Microscopicon 0 01-10-2024 Appearance (U) Clear Normal Clear [facility] Comment on above: Order Comment: Name Collection Type:: Clean-Voided Midstream Performed By: #### S JOGRENS, CHROMATIN, CCP, CENTROME, CH50, C3, C4, NIX, JO1, FADI, ADNA, [id number], ANTIR, RA, HISAB #### [facility] , #### CRP, CMP, CK, ESR, [id number], PTH, ADDONUAPLUS, CBC #### [address] Bacteria,Urine None Seen Normal None Seen [facility] Comment on above: Order Comment: Name Collection Type:: Clean-Voided Midstream Performed By: #### S JOGRENS, CHROMATIN, CCP, CENTROME, CH50, C3, C4, NIX, JO1, FADI, ADNA, [id number], ANTIR, RA, HISAB #### [facility] , #### CRP, CMP, CK, ESR, [id number], PTH, ADDONUAPLUS, CBC #### [address] Bilirubin,Urine Negative Normal Negative [facility] Comment on above: Order Comment: Name Collection Type:: Clean-Voided Midstream Performed By: #### S JOGRENS, CHROMATIN, CCP, CENTROME, CH50, C3, C4, NIX, JO1, FADI, ADNA, [id number], ANTIR, RA, HISAB #### [facility] , #### CRP, CMP, CK, ESR, [id number], PTH, ADDONUAPLUS, CBC #### [address] Color (U) Yellow Normal Yellow [facility] Comment on above: Order Comment: Name Collection Type:: Clean-Voided Midstream Performed By: #### S JOGRENS, CHROMATIN, CCP, CENTROME, CH50, C3, C4, NIX, JO1, FADI, ADNA, [id number], ANTIR, RA, HISAB #### [facility] , #### CRP, CMP, CK, ESR, [id number], PTH, ADDONUAPLUS, CBC #### [address] Glucose Ql (U) Normal Normal Normal [facility] Comment on above: Order Comment: Name Collection Type:: Clean-Voided Midstream Performed By: #### S JOGRENS, CHROMATIN, CCP, CENTROME, CH50, C3, C4, NIX, JO1, FADI, ADNA, [id number], ANTIR, RA, HISAB #### [facility] , #### CRP, CMP, CK, ESR, [id number], PTH, ADDONUAPLUS, CBC #### [address] Hyaline Casts,Urine 0-8 Normal 0-8 [facility] Comment on above: Order Comment: Name Collection Type:: Clean-Voided Midstream Result Comment: PERF ORMED BY: [place] [address] PATHOLOGIST CONCRETE PUMP OPERATOR HELPER SOILA JOHNS M.D. Performed By: #### S JOGRENS, CHROMATIN, CCP, CENTROME, CH50, C3, C4, NIX, JO1, FADI, ADNA, [id number], ANTIR, RA, HISAB #### [facility] , #### CRP, CMP, CK, ESR, [id number], PTH, ADDONUAPLUS, CBC #### [address] Ketones Ql (U) Trace High Negative [facility] Comment on above: Order Comment: Name Collection Type:: Clean-Voided Midstream Performed By: #### S JOGRENS, CHROMATIN, CCP, CENTROME, CH50, C3, C4, NIX, JO1, FADI, ADNA, [id number], ANTIR, RA, HISAB #### [facility] , #### CRP, CMP, CK, ESR, [id number], PTH, ADDONUAPLUS, CBC #### [address] Leukocyte esterase Test strip Ql (U) Negative Normal Negative [facility] Comment on above: Order Comment: Name Collection Type:: Clean-Voided Midstream Performed By: #### S JOGRENS, CHROMATIN, CCP, CENTROME, CH50, C3, C4, NIX, JO1, FADI, ADNA, [id number], ANTIR, RA, HISAB #### [facility] , #### CRP, CMP, CK, ESR, [id number], PTH, ADDONUAPLUS, CBC #### [address] Nitrite,Urine Negative Normal Negative [facility] Comment on above: Order Comment: Name Collection Type:: Clean-Voided Midstream Performed By: #### S JOGRENS, CHROMATIN, CCP, CENTROME, CH50, C3, C4, NIX, JO1, FADI, ADNA, [id number], ANTIR, RA, HISAB #### [facility] , #### CRP, CMP, CK, ESR, [id number], PTH, ADDONUAPLUS, CBC #### [address] Occult Blood,Urine Negative Normal Negative [facility] Comment on above: Order Comment: Name Collection Type:: Clean-Voided Midstream Performed By: #### S JOGRENS, CHROMATIN, CCP, CENTROME, CH50, C3, C4, NIX, JO1, FADI, ADNA, [id number], ANTIR, RA, HISAB #### [facility] , #### CRP, CMP, CK, ESR, [id number], PTH, ADDONUAPLUS, CBC #### [address] pH (U) 8.0 [pH] Normal 5.0-9.0 [facility] Comment on above: Order Comment: Name Collection Type:: Clean-Voided Midstream Performed By: #### S JOGRENS, CHROMATIN, CCP, CENTROME, CH50, C3, C4, NIX, JO1, FADI, ADNA, [id number], ANTIR, RA, HISAB #### [facility] , #### CRP, CMP, CK, ESR, [id number], PTH, ADDONUAPLUS, CBC #### [address] Protein,Urine Negative Normal Negative [facility] Comment on above: Order Comment: Name Collection Type:: Clean-Voided Midstream Performed By: #### S JOGRENS, CHROMATIN, CCP, CENTROME, CH50, C3, C4, NIX, JO1, FADI, ADNA, [id number], ANTIR, RA, HISAB #### [facility] , #### CRP, CMP, CK, ESR, [id number], PTH, ADDONUAPLUS, CBC #### [address] RBC,Urine 10-19 High 0-4 [facility] Comment on above: Order Comment: Name Collection Type:: Clean-Voided Midstream Performed By: #### S JOGRENS, CHROMATIN, CCP, CENTROME, CH50, C3, C4, NIX, JO1, FADI, ADNA, [id number], ANTIR, RA, HISAB #### [facility] , #### CRP, CMP, CK, ESR, [id number], PTH, ADDONUAPLUS, CBC #### [address] Specificy [place],Urine 1.023 Normal 1.001-1.030 [facility] Comment on above: Order Comment: Name Collection Type:: Clean-Voided Midstream Performed By: #### S JOGRENS, CHROMATIN, CCP, CENTROME, CH50, C3, C4, NIX, JO1, FADI, ADNA, [id number], ANTIR, RA, HISAB #### [facility] , #### CRP, CMP, CK, ESR, [id number], PTH, ADDONUAPLUS, CBC #### [address] Squamous Epithelial Cell,Urine 3-4 High 0-2 [facility] Comment on above: Order Comment: Name Collection Type:: Clean-Voided Midstream Performed By: #### S JOGRENS, CHROMATIN, CCP, CENTROME, CH50, C3, C4, NIX, JO1, FADI, ADNA, [id number], ANTIR, RA, HISAB #### [facility] , #### CRP, CMP, CK, ESR, [id number], PTH, ADDONUAPLUS, CBC #### [address] Urobilinogen,Urine Normal Normal Normal [facility] Comment on above: Order Comment: Name Collection Type:: Clean-Voided Midstream Performed By: #### S JOGRENS, CHROMATIN, CCP, CENTROME, CH50, C3, C4, NIX, JO1, FADI, ADNA, [id number], ANTIR, RA, HISAB #### [facility] , #### CRP, CMP, CK, ESR, [id number], PTH, ADDONUAPLUS, CBC #### [address] WBC,Urine 1-2 Normal 0-4 [facility] Comment on above: Order Comment: Name Collection Type:: Clean-Voided Midstream Performed By: #### S JOGRENS, CHROMATIN, CCP, CENTROME, CH50, C3, C4, NIX, JO1, FADI, ADNA, [id number], ANTIR, RA, HISAB #### [facility] , #### CRP, CMP, CK, ESR, [id number], PTH, ADDONUAPLUS, CBC #### [address] Erythrocyte Sedimentation Ra miles 01-10-2024 ESR (Bld) [Velocity] 16 mm/h Normal 0-19 [facility] Comment on above: Result Comment: PERF ORMED BY: [facility] [address] [place] [address] PATHOLOGIST CONCRETE PUMP OPERATOR HELPER SOILA JOHNS M.D. Performed By: #### S JOGRENS, CHROMATIN, CCP, CENTROME, CH50, C3, C4, NIX, JO1, FADI, ADNA, [id number], ANTIR, RA, HISAB ####[facility] ,#### CRP, CMP, CK, ESR, [id number], PTH, ADDONUAPLUS, CBC ####[place] [address] [place] [address] [facility] Histone Antibodieson 024 Histone Antibodies 0.9 Normal 0.0-0.9 [facility] Comment on above: Result Comment: Nega tive <1.0 Weak Positive 1.0 - 1.5 Moderate Positive 1.6 - 2.5 Strong Positive >2.5 Performed at: - [facility] [id number] Obstetrics Teacher: Raciel Tapia MD, Phone: [phone] Performed By: #### S JOGRENS, CHROMATIN, CCP, CENTROME, CH50, C3, C4, NIX, JO1, FADI, ADNA, [id number], ANTIR, RA, HISAB ####[facility] ,#### CRP, CMP, CK, ESR, [id number], PTH, ADDONUAPLUS, CBC ####[address] [address] [facility] KIRK-1 Antibodyon 01-10-2024 KIRK-1 Antibody <0.2 Normal 0.0-0.9 [facility] Comment on above: Performed By: #### S JOGRENS, CHROMATIN, CCP, CENTROME, CH50, C3, C4, NIX, JO1, FADI, ADNA, [id number], ANTIR, RA, HISAB ####[facility] ,#### CRP, CMP, CK, ESR, [id number], PTH, ADDONUAPLUS, CBC ####[place] [id number] [facility] MISC LABon 01-10-2024 MISC LAB Normal [facility] Comment on above: Order Comment: [facility] Test Name: TEST #[id number] U1 HYDRO OPERATOR Result Comment: See report. Scanned copy available in EMR.SE PERFORMED BY: [place] [address] PATHOLOGIST CONCRETE PUMP OPERATOR HELPER SOILA JOHNS M.D. Performed By: #### [facility] ####[address]#### FADI ####[facility] , Parathyroid Hormone Intacton 01-10-2024 Parathyroid Hormone Intact 75.1 pg/mL Normal 12-88 [facility] Comment on above: Result Comment: PERF ORMED BY: [place] [address] PATHOLOGIST CONCRETE PUMP OPERATOR HELPER SOILA JOHNS M.D. Performed By: #### S JOGRENS, CHROMATIN, CCP, CENTROME, CH50, C3, C4, NIX, JO1, FADI, ADNA, [id number], ANTIR, RA, HISAB #### [facility] , #### CRP, CMP, CK, ESR, [id number], PTH, ADDONUAPLUS, CBC #### [address] Rheumatoid Factoron 01-10-20 Rheumatoid Factor <10.0 Normal <14.0 [facility] Comment on above: Result Comment: Perf ormed at: - [facility] [address] [id number] Obstetrics Teacher: Leonard Moreno PhD, Phone: [phone] Performed By: #### S JOGRENS, CHROMATIN, CCP, CENTROME, CH50, C3, C4, NIX, JO1, FADI, ADNA, [id number], ANTIR, RA, HISAB ####[facility] ,#### CRP, CMP, CK, ESR, [id number], PTH, ADDONUAPLUS, CBC ####[address] Scleroderma 70 Antibodieson 01-10-2024 Scleroderma 70 Antibodies 0.3 Normal 0.0-0.9 [facility] Comment on above: Performed By: #### S JOGRENS, CHROMATIN, CCP, CENTROME, CH50, C3, C4, NIX, JO1, FADI, ADNA, [id number], ANTIR, RA, HISAB ####[facility] ,#### CRP, CMP, CK, ESR, [id number], PTH, ADDONUAPLUS, CBC ####[address] Sjogrens Anti-SSA/SSBon SS-A/Ro Sjogrens Antibody 0.2 Normal 0.0-0.9 [facility] Comment on above: Performed By: #### S JOGRENS, CHROMATIN, CCP, CENTROME, CH50, C3, C4, NIX, JO1, FADI, ADNA, [id number], ANTIR, RA, HISAB ####[facility] ,#### CRP, CMP, CK, ESR, [id number], PTH, ADDONUAPLUS, CBC ####[address] SS-B/La Sjogrens Antibody <0.2 Normal 0.0-0.9 [facility] Comment on above: Performed By: #### S JOGRENS, CHROMATIN, CCP, CENTROME, CH50, C3, C4, NIX, JO1, FADI, ADNA, [id number], ANTIR, RA, HISAB ####[facility] ,#### CRP, CMP, CK, ESR, [id number], PTH, ADDONUAPLUS, CBC ####[address] Vitamin D 25 Hydroxy Totalon 01-10-2024 Vitamin D 25 Hydroxy Total 12.9 ng/mL Low 30-100 [facility] Comment on above: Result Comment: SUNSHINE MIN D STATUS 25(OH)VITAMIN D RANGE (ng/mL) Deficient <20 Insufficient 20 to <30 Sufficient 30 to 100 Reference: Silver MF,Juan NC, Brigido CHRISTIANSON, et al. Evaluation,treatment, and prevention of vitamin D deficiency; an Endocrine Society clinical practice guideline. JCEM. 2010; 96(7):1911-30. PERFORMED BY: [place] [address] PATHOLOGIST CONCRETE PUMP OPERATOR HELPER SOILA JOHNS M.D. Performed By: #### S JOGRENS, CHROMATIN, CCP, CENTROME, CH50, C3, C4, NIX, JO1, FADI, ADNA, [id number], ANTIR, RA, HISAB #### [facility] , #### CRP, CMP, CK, ESR, [id number], PTH, ADDONUAPLUS, CBC #### [address] XR shoulder RT min 2V*on XR shoulder RT min 2V* [facility] Main [place] [address] [place] [address] XRay Report Signed Patient: Candis Eric MR#: [id number] 82 : 1975 Acct:[id number] Age/Sex: 48 / F ADM Date: 01/10/24 Loc: XD Room: Type: [facility] Attending Dr: Jaya Abdi MD Copies to: Jaya Abdi MD Ordering Provider: Jaya Abdi MD Date of Service: 01/10/24 XR/XR shoulder RT min 2V*: HAND PAIN, SHOULDER PAIN AND KNEE PAIN ([id number]) XR/XR knee RT 4V*: HAND KNEE AND SHOULDER PAIN ([id number]) XR/XR hand BI 3V: RA Bilateral hand series 3 views each, right shoulder 3 views, right knee 5 views Reason for exam: Anterior right knee pain. Pain in first third and fifth fingers of both hands. Right shoulder pain. No known injury. COMPARISON: None. FINDINGS: Right hand: No focal soft tissue abnormality. No acute bony process is seen. Cystic changes and sclerosis involving the pisiform bone. Mild degenerative changes of the carpus. Mild degenerative changes of the IP joints. No bony erosions are seen. A calcification is seen adjacent to the PIP joint of the second digit possibly posttraumatic in nature. Left hand: No focal soft tissue abnormality. No acute bony process is seen. No significant degenerative change or bony erosions. Right shoulder: No acute bony process. No significant degenerative change. Subacromial space appears maintained. Right knee: No knee joint effusion or acute bony process. Mild degenerative changes without significant joint space narrowing. XR/XR hand BI 3V IMPRESSION: Right hand demonstrates mild degenerative changes without acute bony process. Left hand demonstrate no acute bony process or significant degenerative change. Right shoulder demonstrates no acute bony process or significant degenerative change. Right knee demonstrates mild degenerative changes without acute bony process. Impression dictated by: Nitish Scott Jr., D.O.01/10/2024 4:41 PM Dictation Location: [facility] Transcribed By: [facility] 01/10/24 1641 Dictated By: Nitish Scott Jr, DO 01/10/24 1638 Signed By: 01/10/24 1641 Normal [facility] MM special view RT w/CADon 0 10-31-2023 MM special view RT w/CAD [facility] Main [place] [address] [place] [address] Ultrasound Report Signed Patient: Candis Eric MR#: [id number] 82 : 1975 Acct:[id number] Age/Sex: 48 / F ADM Date: 10/31/23 Loc: [place] Room: Type: [facility] Attending Dr: Kady Stout MD Ordering Provider: Kady Stout MD Date of Service: 10/31/23 MM/MM special view RT w/CAD: Abnormal mammogram ([id number]) US/US breast RT limited: abn. rt dimitri Copies to: Kady Stout MD RIGHT Diagnostic Full Field digital mammogram with 3-D imaging. Spot compression with mediolateral view COMPARISON: 10/18/2023 HISTORY: Follow-up assessment of right breast nodularity BREAST COMPOSITION: Scattered fibroglandular densities of the breast parenchyma identified BENIGN BREAST CALCIFICATIONS: Present VASCULAR CALCIFICATIONS: None DEVELOPING ARCHITECTURAL DISTORTION: None DEVELOPING BREAST NODULE: Nodularity persists with compression imaging. DEVELOPING MALIGNANT CALCIFICATIONS: None AXILLARY LYMPH NODES: Normal POSTSURGICAL CHANGES: None Targeted right breast ultrasound performed. There is a cluster of microcysts measuring up to 1 cm at the 6:00 position 8 cm from nipple concordant with mammographic findings. US/US breast RT limited IMPRESSION: Clustered microcysts of the right breast. This is likely benign. Six-month targeted right breast ultrasound recommended. RESULT CODE: 3 Probably Benign Finding Short Term Follow-Up DENSITY CODE: 2 (approximately 25-50% glandular) FOLLOW UP: 6M THE FALSE-NEGATIVE RATE OF MAMMOGRAPHY IS APPROXIMATELY 10%. IMAGING OF A PALPABLE ABNORMALITY MUST BE BASED ON CLINICAL GROUNDS. PATIENT WAS ENTERED INTO A REMINDER SYSTEM WITH A TARGET DUE DATE FOR THE NEXT MAMMOGRAM. Impression dictated by: Petros Sethi M.D.10/31/2023 12:41 PM Dictation Location: [facility] Tech: Mahsa Torres Transcribed By: DONAL 10/31/23 1241 Dictated By: Petros Sethi DO 10/31/23 1238 Signed By: 10/31/23 1241 Normal [facility] MM screening mammo BI w/CADo n 10-18-2023 MM screening mammo BI w/CAD [facility] Main [place] [address] [place] [address] Mammography Report Signed Patient: Candis Eric MR#: [id number] 82 : 1975 Acct:[id number] Age/Sex: 48 / F ADM Date: 10/18/23 Loc: [place] Room: Type: [facility] Attending Dr: Kady Stout MD Copies to: NON STAFF Kady Stout MD Ordering Provider: Kady Stout MD Date of Service: 10/18/23 MM/MM screening mammo BI w/CAD: Encounter for screening mammogram for malignant neoplasm of CLINICAL DATA: Screening for malignancy. BILATERAL SCREENING MAMMOGRAMS - FULL FIELD DIGITAL WITH TOMOSYNTHESIS AND CAD Routine and tomosynthesis craniocaudal and mediolateral oblique views of both breasts were obtained using low-dose digital technique. Comparison is made to prior outside studies from August 19, 2019 (no right CC view) and August 26, 2019 (left). This examination was reviewed with the aid of CAD. There are scattered fibroglandular densities. A nodular asymmetry is seen at the central inferior right breast posteriorly approximately 10 cm from the nipple. This is at least 7 mm in size. This is not well seen on the comparison. There is also a nodular asymmetry at the medial central to slightly superior left breast which was identified on the prior. There are no reports from the comparison exams. There are no typically malignant calcifications or architectural distortion. MM/MM screening mammo BI w/CAD IMPRESSION: POSSIBLE DEVELOPING RIGHT BREAST NODULAR ASYMMETRY. FOLLOW-UP SPOT COMPRESSION VIEWS ARE RECOMMENDED ALONG WITH ULTRASOUND, WARRANTED. RESULT CODE: 0 Incomplete: Needs Additional Imaging Evaluation DENSITY CODE: 2 (approximately 25-50% glandular) FOLLOW UP: ADD The false-negative rate of mammography is approximately 10-percent. Management of a palpable abnormality must be based on clinical grounds. Patient was entered into a reminder system with a target due date for the next mammogram. Impression dictated by: Meena Yu M.D.10/18/2023 1:53 PM Dictation Location: [facility] Transcribed By: DONAL 10/18/23 1353 Dictated By: Meena Yu MD 10/18/23 1040 Signed By: 10/18/23 1353 Normal [facility] Alanine aminotransferase [En zymatic activity/volume] in Serum or PlasmaOrdered By: Matthew Morley on 04-25-2023 ALT [Catalytic activity/Vol] 14 U/L 7-52 [facility] Albumin [Mass/volume] in Ser um or Plasma by Bromocresol green (BCG) dye binding methoOrdered By: Matthew Morley on 04-25-2023 Albumin BCG dye [Mass/Vol] 4.4 g/dL 3.5-5.7 [facility] Alkaline phosphatase [Enzyma tic activity/volume] in Serum or PlasmaOrdered By: Matthew Morley on 04-25-2023 ALP [Catalytic activity/Vol] 51 U/L 34-104 [facility] Aspartate aminotransferase [ Enzymatic activity/volume] in Serum or PlasmaOrdered By: Matthew Morley on 04-25-2023 AST [Catalytic activity/Vol] 14 U/L 13-39 [facility] Bilirubin.total [Mass/volume ] in Serum or PlasmaOrdered By: Matthew Morley on 04-25-2023 Bilirubin [Mass/Vol] 0.4 mg/dL 0.3-1.0 [facility] CMP with reflex to A1Con Albumin [Mass/Vol] 4.4 g/dL Normal 3.5-5.7 [facility] Comment on above: Performed By: #### E BS LIPID, CMP wRFX A1C ####[place] [address] [place]#### NICOTINE QUAL ####[facility] , Albumin/Globulin [Mass ratio] 1.7 {ratio} Normal [facility] Comment on above: Performed By: #### E BS LIPID, CMP wRFX A1C ####[place] [address] [place]#### NICOTINE QUAL ####[facility] , ALP [Catalytic activity/Vol] 51 U/L Normal 34-104 [facility] Comment on above: Performed By: #### E BS LIPID, CMP wRFX A1C ####[place] [address] [place]#### NICOTINE QUAL ####[facility] , ALT [Catalytic activity/Vol] 14 U/L Normal 7-52 [facility] Comment on above: Performed By: #### E BS LIPID, CMP wRFX A1C ####[place] [address] [place]#### NICOTINE QUAL ####[facility] , Anion gap [Moles/Vol] 14.5 mmol/L Normal 6.0-15.0 [facility] Comment on above: Performed By: #### E BS LIPID, CMP wRFX A1C ####[place] [address] [place]#### NICOTINE QUAL ####[facility] , AST [Catalytic activity/Vol] 14 U/L Normal 13-39 [facility] Comment on above: Performed By: #### E BS LIPID, CMP wRFX A1C ####[address]#### NICOTINE QUAL ####[facility] , Bilirubin [Mass/Vol] 0.4 mg/dL Normal 0.3-1.0 [facility] Comment on above: Performed By: #### E BS LIPID, CMP wRFX A1C ####[address]#### NICOTINE QUAL ####[facility] , Calcium [Mass/Vol] 9.0 mg/dL Normal 8.6-10.3 [facility] Comment on above: Performed By: #### E BS LIPID, CMP wRFX A1C ####[place] [address] [place]#### NICOTINE QUAL ####[facility] , Chloride [Moles/Vol] 102 mmol/L Normal 98-107 [facility] Comment on above: Performed By: #### E BS LIPID, CMP wRFX A1C ####[address]#### NICOTINE QUAL ####[facility] , CO2 [Moles/Vol] 24.9 mmol/L Normal 21.0-31.0 [facility] Comment on above: Performed By: #### E BS LIPID, CMP wRFX A1C ####[place] [address] [place]#### NICOTINE QUAL ####[facility] , Creatinine [Mass/Vol] 0.68 mg/dL Normal 0.60-1.20 [facility] Comment on above: Performed By: #### E BS LIPID, CMP wRFX A1C ####[place] [address] [place]#### NICOTINE QUAL ####[facility] , GFR/1.73 sq M.predicted MDRD (S/P/Bld) [Vol rate/Area] mL/min/{1.73_m2} Normal [facility] Comment on above: Performed By: #### E BS LIPID, CMP wRFX A1C ####[place] [address] [place]#### NICOTINE QUAL ####[facility] , Globulin (S) [Mass/Vol] 2.6 g/dL Normal [facility] Comment on above: Performed By: #### E BS LIPID, CMP wRFX A1C ####[address]#### NICOTINE QUAL ####[facility] , Glucose [Mass/Vol] 86 mg/dL Normal 70-100 [facility] Comment on above: Performed By: #### E BS LIPID, CMP wRFX A1C ####[address]#### NICOTINE QUAL ####[facility] , Potassium [Moles/Vol] 4.4 mmol/L Normal 3.5-5.1 [facility] Comment on above: Performed By: #### E BS LIPID, CMP wRFX A1C ####[place] [address] [place]#### NICOTINE QUAL ####[facility] , Protein [Mass/Vol] 7.0 g/dL Normal 6.4-8.9 [facility] Comment on above: Performed By: #### E BS LIPID, CMP wRFX A1C ####[place] [address] [place]#### NICOTINE QUAL ####[facility] , Sodium [Moles/Vol] 137 mmol/L Normal 136-145 [facility] Comment on above: Performed By: #### E BS LIPID, CMP wRFX A1C ####[facility] [id number] [place] [address] [place]#### NICOTINE QUAL ####[facility] , Urea nitrogen [Mass/Vol] 12 mg/dL Normal 7-25 [facility] Comment on above: Performed By: #### E BS LIPID, CMP wRFX A1C ####[facility] [id number] [place] [id number] [place]#### NICOTINE QUAL ####[facility] , Calcium [Mass/volume] in Ser um or PlasmaOrdered By: Matthwe Morley on 04-25-2023 Calcium [Mass/Vol] 9.0 mg/dL 8.6-10.3 [facility] Carbon dioxide, total [Moles /volume] in Serum or PlasmaOrdered By: Matthew Morley on 04-25-2023 CO2 [Moles/Vol] 24.9 mmol/L 21.0-31.0 [facility] Chloride [Moles/volume] in S lazaro or PlasmaOrdered By: Matthew Morley on 04-25-2023 Chloride [Moles/Vol] 102 mmol/L 98-107 [facility] Cholesterol [Mass/volume] in Serum or PlasmaOrdered By: Matthew Morley on 04-25-2023 Cholesterol [Mass/Vol] 235 mg/dL 140-200 [facility] Comment on above: Chol less than 200 m g/dl low riskChol 201-239 mg/dl borderline riskChol 240 mg/dl and greater high risk Cholesterol in LDL Calc [Mas s/Vol]Ordered By: Matthew Morley on 04-25-2023 Cholesterol in LDL [Mass/Vol] 147 mg/dL 0-100 [facility] Comment on above: LDL ATP III CLASSIFI CATIONLDL less than 100 mg/dL OptimalLDL 100-129 mg/dL Near or above optimalLDL 130-159 mg/dL Borderline highLDL 160-189 mg/dL HighLDL greater than 189 mg/dL Very high Cholesterol in VLDL Calc [Ma ss/Vol]Ordered By: Matthew Morley on 04-25-2023 Cholesterol in VLDL [Mass/Vol] 40 mg/dL [facility] Creatinine [Mass/volume] in Serum or PlasmaOrdered By: Matthew Morley on 04-25-2023 Creatinine [Mass/Vol] 0.68 mg/dL 0.60-1.20 [facility] Globulin Calc (S) [Mass/Vol] Ordered By: Matthew Morley on 04-25-2023 Globulin (S) [Mass/Vol] 2.6 g/dL [facility] Glucose [Mass/volume] in Ser um or PlasmaOrdered By: Matthew Morley on 04-25-2023 Glucose [Mass/Vol] 86 mg/dL 70-100 [facility] Lipid Profileon 04-25-2023 Cholesterol [Mass/Vol] 235 mg/dL High 140-200 [facility] Comment on above: Result Comment: Chol less than 200 mg/dl low risk Chol 201-239 mg/dl borderline risk Chol 240 mg/dl and greater high risk Performed By: #### E BS LIPID, CMP wRFX A1C ####[place] [id number] [address]#### NICOTINE QUAL ####[facility] , Cholesterol in HDL [Mass/Vol] 48 mg/dL Normal 23-92 [facility] Comment on above: Result Comment: HDL CHOL ATP-III CLASSIFICATION Cardiovascular Risk HDL > or equal to 60 mg/dL LOW HDL < 40 mg/dL HIGH Performed By: #### E BS LIPID, CMP wRFX A1C ####[place] [id number] [address]#### NICOTINE QUAL ####[facility] , Cholesterol.total/Liliana sterol in HDL [Mass ratio] 4.9 {ratio} Normal <5.0 [facility] Comment on above: Result Comment: PERF ORMED BY: [facility] [address] [place] [address] PATHOLOGIST CONCRETE PUMP OPERATOR HELPER SOILA JOHNS M.D. Performed By: #### E BS LIPID, CMP wRFX A1C ####[place] [id number] [place] [address] [place]#### NICOTINE QUAL ####[facility] , LDL Cholesterol,Calculated 147 mg/dL High 0-100 [facility] Comment on above: Result Comment: LDL ATP III CLASSIFICATION LDL less than 100 mg/dL Optimal LDL 100-129 mg/dL Near or above optimal LDL 130-159 mg/dL Borderline high LDL 160-189 mg/dL High LDL greater than 189 mg/dL Very high Performed By: #### E BS LIPID, CMP wRFX A1C ####[place] [address] [address]#### NICOTINE QUAL ####[facility] , Triglyceride w/Reflex 200 mg/dL High 0-149 [facility] Comment on above: Result Comment: TRIG ATP III CLASSIFICATION TRIG less than 150 mg/dL Normal TRIG 150-199 mg/dL Borderline high TRIG 200-500 mg/dL High TRIG greater than 500 mg/dL Very high Standard traceable to the Center for Disease Conrtrol and Prevention (CDC) test method. Performed By: #### E BS LIPID, CMP wRFX A1C ####[address]#### NICOTINE QUAL ####[facility] , VLDL CHOLESTEROL 40 mg/dL Normal [facility] Comment on above: Performed By: #### E BS LIPID, CMP wRFX A1C ####[address]#### NICOTINE QUAL ####[facility] , Nicotine Metabolite, Qualon 04-25-2023 Nicotine Metabolite Negative Normal Cutoff=25 [facility] Comment on above: Result Comment: Perf ormed at: BN - [facility] [address] [facility], [place], [place] [id number] Obstetrics Teacher: Raciel Tapia MD, Phone: [phone] PERFORMED BY: [facility] [address] [place] [address] PATHOLOGIST CONCRETE PUMP OPERATOR HELPER SOILA JOHNS M.D. Performed By: #### S JOGRENS, CHROMATIN, CCP, CENTROME, CH50, C3, C4, NIX, JO1, FADI, ADNA, [id number], ANTIR, RA, HISAB #### [facility] , #### CRP, CMP, CK, ESR, [id number], PTH, ADDONUAPLUS, CBC #### [facility] [address] No Panel InformationOrdered By: Matthew Morley on 04-25-2023 Estimated GFR (CKD-EPI) > 60.0 mL/Min [facility] Creatinine Clearance (Chem N/A [facility] Potassium [Moles/volume] in Serum or PlasmaOrdered By: Matthew Morley on 04-25-2023 Potassium [Moles/Vol] 4.4 mmol/L 3.5-5.1 [facility] Protein [Mass/volume] in Ser um or PlasmaOrdered By: Matthew Morley on 04-25-2023 Protein [Mass/Vol] 7.0 g/dL 6.4-8.9 [facility] Serum or plasma albumin/glob ulin mass ratioOrdered By: Matthew Morley on 04-25-2023 Albumin/Globulin [Mass ratio] 1.7 {ratio} [facility] Serum or plasma anion gap de terminationOrdered By: Matthew Morley on 04-25-2023 Anion gap [Moles/Vol] 14.5 mmol/L 6.0-15.0 [facility] Serum or plasma high density lipoprotein (HDL) cholesterol measurementOrdered By: Matthew Morley on 04-25-2023 Cholesterol in HDL [Mass/Vol] 48 mg/dL 23-92 [facility] Comment on above: HDL CHOL ATP-III CLA SSIFICATION Cardiovascular RiskHDL > or equal to 60 mg/dL LOWHDL < 40 mg/dL HIGH Serum or plasma total choles terol/high density lipoprotein (HDL) cholesterol mass ratOrdered By: Matthew Morley on 04-25-2023 Cholesterol.total/Liliana sterol in HDL [Mass ratio] 4.9 {ratio} <5.0 [facility] Sodium [Moles/volume] in Ser um or PlasmaOrdered By: Matthew Morley on 04-25-2023 Sodium [Moles/Vol] 137 mmol/L 136-145 [facility] Triglyceride [Mass/volume] i n Serum or PlasmaOrdered By: Matthew Morley on 04-25-2023 Triglyceride [Mass/Vol] 200 mg/dL 0-149 [facility] Comment on above: TRIG ATP III CLASSIF ICATIONTRIG less than 150 mg/dL NormalTRIG 150-199 mg/dL Borderline highTRIG 200-500 mg/dL High TRIG greater than 500 mg/dL Very highStandard traceable to the Center for Disease Conrtrol and Prevention (CDC) test method. Urea nitrogen [Mass/volume] in Serum or PlasmaOrdered By: Matthew Morley on 04-25-2023 Urea nitrogen [Mass/Vol] 12 mg/dL 7-25 [facility] Quick Strepon 06-20-2022 S. pyogenes Org specific cx Ql (Throat) Negative [facility] Other Quick Strep [facility] Other SARS-CoV-2 (COVID-19) RNA NA A+probe Ql (Resp)on 06-20-2022 SARS-CoV-2 (COVID-19) RNA BRICE+probe Ql (Unsp spec) Positive [facility] Other Cytologyon 09-28-2020 Cytology (NOTE) INTERPRETATION Cervical material, (ThinPrep vial, Imaging-assisted review): Specimen Adequacy: Satisfactory for evaluation. - Endocervical/transfor mation zone component present. Descriptive Diagnosis: Negative for intraepithelial lesion or malignancy. Trichomonas vaginalis present. Physical Security Specialist: WEN VARGAS(ASCP) Electronically Signed Out ey/10/08/2020 Source: 1: Cervical material, (ThinPrep vial, Imaging-assisted review) Clinical History Z01.419 Routine recreation activities coordinator exam without abnormal findings High Risk HPV DNA testing is requested if the diagnosis is ASC-US GYNECOLOGIC CYTOLOGY REPORT Patient Name: CANDIS ERIC Med Rec: [id number] Path Number: [id number] [facility] [address] [place] [address]. [place], [place] [address] [facility] Comment on above: Performed By: #### P PPVP #### [facility] [address] [place] [address] Obstetrics Teacher: Humberto Gallego MD Vital Signs Date Time Vital Sign Value Performing Clinician Facility 12-12-2023 09:35-0400 Body height 160.02 cm MD Kady Stout Work Phone: [facility] 12-12-2023 09:35-0400 Body mass index (BMI) [Ratio] 36 kg/m2 MD Kady Stout Work Phone: [facility] 12-12-2023 09:35-0400 Body weight 92.19 kg MD Kady Stout Work Phone: [facility] 12-12-2023 09:35-0400 Diastolic blood pressure 80 mm[Hg] MD Kady Stout Work Phone: [facility] 12-12-2023 09:35-0400 Heart rate 80 /min MD Kady Sotut Work Phone: [facility] 12-12-2023 09:35-0400 Systolic blood pressure 119 mm[Hg] MD Kady Stout Work Phone: [facility] 06-19-2023 13:00-0400 Body height 160.02 cm Kady Stout Other [facility] Other 06-19-2023 13:00-0400 Body mass index (BMI) [Ratio] 35.39 kg/m2 Kady Stout Other [employer] [facility] Other 06-19-2023 13:00-0400 Body weight 90.63 kg Kady Stout Other [facility] Other 06-19-2023 13:00-0400 Diastolic blood pressure 83 mm[Hg] Kady Stout Other [facility] Other 10-09-2023 13:00-0400 Systolic blood pressure 128 mm[Hg] Kady Stout Other [facility] Other 06-20-2022 10:00-0400 Body height 160.02 cm Tere Solis Other [facility] Other 06-20-2022 10:00-0400 Body mass index (BMI) [Ratio] 32.77 kg/m2 Tere Solis Other [facility] Other 06-20-2022 10:00-0400 Body temperature 98.4 [degF] Tere Solis Other [facility] Other 06-20-2022 10:00-0400 Body weight 83.92 kg Tere Solis Other [facility] Other 06-20-2022 10:00-0400 Respiratory rate 18 /min Tere Solis Other [facility] Other 06-20-2022 10:00-0400 SaO2% (BldA) [Mass fraction] 99 % Tere Solis Other [facility] Other Encounters Encounter Date Encounter Type Care Provider Facility Start: 01-10-2024 End: 01-10-2024 ambulatory Jaya Abdi Facility:[facility] Start: 12-12-2023 End: 12-12-2023 ambulatory NON STAFF [facility] Work Phone: Start: 12-12-2023 End: 12-12-2023 Patient encounter procedure MD Kady Stout [facility] Work Phone: Start: 10-31-2023 End: 10-31-2023 ambulatory Kady Stout Facility:[facility] Start: 10-31-2023 End: 10-31-2023 ambulatory NON STAFF [facility] Work Phone: Start: 10-31-2023 End: 10-31-2023 Patient encounter procedure MD Kady Stout Work Phone: [facility] Work Phone: Start: 10-20-2023 End: 10-20-2023 ambulatory Kady Stotu Other [facility] Other Start: 10-20-2023 Telephone encounter Kady Stout [facility] Start: 10-19-2023 End: 10-19-2023 ambulatory Kady Stout Other [employer] Other Start: 10-19-2023 Telephone encounter Kady Stout [facility] Start: 10-18-2023 End: 10-18-2023 ambulatory Kady Stout Facility:[facility] Start: 10-18-2023 End: 10-18-2023 ambulatory NON STAFF [facility] Work Phone: Start: 10-18-2023 End: 10-18-2023 Patient encounter procedure MD Kady Stout Work Phone: [facility] Work Phone: Start: 06-26-2023 End: 06-26-2023 ambulatory Kady Stout Other [facility] Other Start: 06-26-2023 Telephone encounter Kady Stout [facility] Start: 06-19-2023 End: 06-19-2023 ambulatory Kady Stout Other [facility] Other Start: 06-19-2023 Encounter for genera l adult medical examination without abnormal findings Kady Stout [facility] Start: 06-19-2023 Initial preventive medicine new patient 40-64yrs Kady Stout [facility] Start: 04-25-2023 End: 04-25-2023 ambulatory Matthew Morley - [facility] Facility:[facility] Start: 04-25-2023 End: 04-25-2023 ambulatory NON STAFF [facility] Work Phone: Start: 04-25-2023 End: 04-25-2023 Departed Referred [facility] [address] Work Phone: Start: 06-20-2022 End: 06-20-2022 ambulatory [address] [facility] Other Start: 06-20-2022 Office outpatient ne w 20 minutes Tere Solis [facility] Start: 09-28-2020 End: 09-29-2020 Patient encounter procedure WENDY JOY [facility] Start: 09-28-2020 End: 09-28-2020 Subsequent hospital visit by physician Wendy Joy [facility] Comment on above: Women's annual routi ne gynecological examination Procedures Date Procedure Procedure Detail Performing Clinician Start: 10-31-2023 Mammography of right breast MD Kady Stout Work Phone: Start: 10-31-2023 Ultrasonography of r ight breast MD Kady Stout Work Phone: Start: 10-18-2023 Screening mammograph y of bilateral breasts MD Kady Stout Work Phone: Plan of Treatment Date Care Activity Detail Author Start: 12-12-2023 Patient referral [facility] Work Phone: Start: 04-25-2023 [facility] Start: 05-12-2020 Influenza vaccination Flu vaccine (# 1) [place], [place] Start: 10-27-2018 Screening for malign ant neoplasm of cervix Cervical cancer screen [place], [place] Start: 2014 Diabetes screen Diabetes screen [place], [place] Start: 2014 Lipid panel Lipid screen [place], [place] Start: 1993 DTaP/Tdap/Td vaccine (1 - Tdap) DTaP/Tdap/Td vaccine (1 - Tdap) [place], [place] Start: 1989 HIV screening HIV screen Kellie Messer [place], [place] Start: 1974 Hepatitis C screening Hepatitis C sc cheko [place], [place] End: 09-28-2020 Cytopathology procedure, preparation of smear, genital source [facility] S[facility] Lab Routine Women's Annual Routine Gynecological Examination 1 Occurrences starting 09/28/2020 until 09/28/2020 [place], [place] Comment on above: 1 Occurrences starti ng 09/28/2020 until 09/28/2020 Patient referral [facility] Work Phone: Payers Date Payer Category Payer Unknown [id number] 2023 Unknown [id number] 2023 Self-pay 2020 Private Health Insurance [id number] 1975 Unknown [id number] [id number] [facility] [id number] Unknown [id number] [id number] Unknown [id number] [id number] [id number] Unknown [id number] [id number] [id number] Unknown [id number] [id number] [id number] Social History Date Type Detail Facility Start: 09-28-2020 Tobacco smoking status NHIS Former smoker [place], [place] Start: 09-28-2020 Tobacco use and exposure Never used [place] Start: 09-28-2020 Alcohol intake Current drinke r of alcohol (finding) [place] Start: 09-30-2015 Tobacco Comment uses e-cigs [facility]RISTIAN Unger Start: 06-11-2015 Alcohol Comment occas [facility] Unger Sex Assigned At Not on file CHRISTIAN Dalton Sex Assigned At Sex Assigned At Bir th [facility] Other Start: 1975 Sex Assigned At Female F [facility] Start: 06-19-2023 End: 06-19-2023 Tobacco smoking status NHIS Smoker (finding) [facility] Evaluation note 10-20-2023 Note Date & Type Note Facility 10-20-2023 Evaluation note Encounter Date Diagnosis Assessment Notes Oct, Abnormal mammogram (ICD-10 - R92.8) [facility] Other Evaluation note 10-19-2023 Note Date & Type Note Facility 10-19-2023 Evaluation note Encounter Date Diagnosis Assessment Notes Oct, Abnormal mammogram (ICD-10 - R92.8) [facility] Other Evaluation note 06-19-2023 Note Date & Type Note Facility 06-19-2023 Evaluation note Encounter Date Diagnosis Assessment Notes Jun, Well adult exam (ICD-10 - Z00.00) We have discussed the necessity of following up with PCP regularly as well as specialists, as needed. Discussed F/U with dentistry and optometry at least yearly. Discussed all preventative measures/ cancer screenings as applicable to this patient. Emphasized the importance of a reduced fat, low carb diet to promote heart health and controlled blood sugars. Reviewed social history and ensured patient is safe within the home today. Pt denies any abuse of alcohol, nicotine, caffeine or recreational drugs. I have ensured patient is of stable mental and physical health today. We have discussed appropriate F/U schedule as well as blood work and vaccinations that apply. All questions answered and patient is sent home pleased, without concerns. Jun, Screening for colon cancer (ICD-10 - Z12.11) Pt agrees to referral. Uncle in [place] had an unknown type of cancer that was involving GI tract. Jun, Encounter for screening mammogram for malignant neoplasm of breast (ICD-10 - Z12.31) Jun, Left foot pain (ICD-10 - M79.672) Hiking in March, continues to have pain. 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 Hx of plantar fasciitis as well. Agrees to referral to Dr. Guzman. [facility] Other Evaluation note 06-20-2022 Note Date & Type Note Facility 06-20-2022 Evaluation note Encounter Date Diagnosis Assessment Notes Jun, Contact with and (suspected) exposure to other viral communicable diseases (ICD-10 - Z20.828) Jun, COVID-19 (ICD-10 - U07.1) Today you tested positive for the COVID virus. This mean you need to follow all CDC quarantine guidelines found at coronavirus.oh io.gov. It is important to rest, increase fluids, and stay at home. Recommend contacting primary care provider and discussing best course of action if you have chronic health conditions. COVID POSITIVE education handout discharge instructions. given. Jun, Bronchitis (ICD-10 - J40) Take medications as directed. Rest and increase fluid intake. Take meds with food to prevent stomach upset. Use inhaler as needed for coughing spells and SOB. It is better to use inhaler a few times a day over the next 2-3 days. Follow up with primary care provider if symptoms do not improve with treatment plan, although it may take a few weeks for the cough to go away [facility] Other Chief complaint+Reason for visit Narrative Note Date & Type Note Facility Chief complaint+Reason for visit Narrative Reason for Visit Rheumatoid arthritis [facility] Work Phone: Evaluation note Note Date & Type Note Facility Evaluation note No assessment information availa [facility] Work Phone: Evaluation note Note Date & Type Note Facility Evaluation note No Information [facility] Other Evaluation note Note Date & Type Note Facility Evaluation note Diagnosis Onset Date Rheumatoid arthritis acute [facility] Work Phone: History general Narrative - Reported Note Date & Type Note Facility History general Narrative - Reported Type Medical History rheumatoid arthritis Medical History 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 Surgical History nerve block knee Surgical History left arm Hospitalization History See Above [facility] Other Hospital Discharge instructions Note Date & Type Note Facility Hospital Discharge instructions Ambulatory OrdersReferral to Rheumatology Time Frame: 12/12/23, Location: None Selected [facility] Work Phone: Summary Purpose Family History No Family History Records FoundNo Family History Records Found Advance Directives No Advanced Directives Records FoundDocuments on File Type Date Recorded Patient Research Animal Facility Supervisor Expl anation ACP-Advance Directive ACP-Power of Sculpture Conservator Advance Directive Response Recorded Date/ Time Advance Directives No September 27, 2023 2:44pm Advance Directive Response Recorded Date/ Time Advance Directives No September 27, 2023 3:44pm Assessments Diagnosis Women's annual routine gynecological examination Chief Complaint and Reason for Visit Chief Complaint 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 Chief Complaint Z12.31 Chief Complaint Z12.31 R92.8 Reason for Referral Reason *FU 06/27 L foot p ain, injury in March Diagnosis 1 Left foot pain (M79. 672) Referral Organization [facility] Referring Provider First Name Kady Referring Provider Last Name Argelia Referring Provider Specialty [facility] [place] Referred Organization [facility] Referred Provider Jorge Guzman Referred Address [address], [place],[address] Referred Provider Specialty Podiatry - S urgical Chiropody Referral Priority Routine General Notes Marni Reyes 01:48:32 PM >received today Marni Reyes 06/20/2023 01:50:37 PM >attachments made, notes locked, referral faxed Clinical Notes f: [id number] Reason *Waiting for appt screening. uncle had ?bowel or stomach cancer. no symptoms Diagnosis 1 Screening for colon cancer (Z12.11) Referral Organization [facility] Referring Provider First Name Kady Referring Provider Last Name Argelia Referring Provider Specialty Family [place] Referred Organization [facility] Gastroenterolo gy Referred Provider Shanon Benz Referred Address [address],[address] Referred Provider Specialty Gastroentero logy Referral Priority Routine General Notes Marni Reyes 02:53:06 PM >received today, sent P2P Additional Source Comments INFORMATION SOURCE (unrecogn ized section and content) DATE CREATED AUTHOR 10/08/2020 [facility] DATE CREATED AUTHOR AUTHOR'S ORGANIZ ATION 01/20/2024 [facility] REASON FOR VISIT (unrecogniz ed section and content) MANDUJANO BHAVANA B/A [facility] Pi robertogeabnormal mammNo Information Care Teams (unrecognized sec tion and content) Team Status: Active Member Role Status Dates NON STAFF Primary Care Provider Active Team Status: Inactive Member Role Status Dates NON STAFF Primary Care Provider Active Matthew Morley DO [facility] Attending Provider Active Team Status: Inactive Member Role Status Dates Kady Stout MD Attending Provider Active St art: October 18, 2023 End: October 18, 2023 NON STAFF Primary Care Provider Active Start: October 18, 2023 End: October 18, 2023 Team Status: Inactive Member Role Status Dates NON STAFF Primary Care Provider Active Start: October 31, 2023 End: October 31, 2023 Kady Stout MD Attending Provider Active St art: October 31, 2023 End: October 31, 2023 Team Status: Active Member Role Status Dates Kady Stout MD Primary Care Provider Active Team Status: Inactive Member Role Status Dates Kady Stout MD Primary Care Provide r, Attending Provider Active Start: December 12, 2023 End: December 12, 2023 Goals (unrecognized section and content) Goals may be documented in a n alternate section FOR RECORDS PERTAINING TO PATIENTS WHO ARE OR HAVE BEEN ENROLLED IN A CHEMICAL DEPENDENCY/SUBSTANCEABUSE PROGRAM, SOME INFORMATION MAY BE OMITTED. This clinical summary was aggregated from multiple sources. Caution should be exercised in using it in the provision of clinical care. This summary normalizes information from multiple sources, and as a consequence, information in this document may materially change the coding, format and clinical context of patient data. In addition, data may be omitted in some cases. CLINICAL DECISIONS SHOULD BE BASED ON THE PRIMARY CLINICAL RECORDS. [facility]. provides no warranty or guarantee of the accuracy or completeness of information in this document.
== END 2024-04-17 13:48 | disposition home or self-care (01) ==
LOC: EC 13:47
PROVIDERS: Visit Provider Podiatrist Foot & Ankle Surgery
DX: M79.671 Pain in right foot (principal)
CPT/HCPCS: 73630

== ENCOUNTER 2025-04-10 11:01 | Outpatient (OUT) | payer OTHER, SELFPAY ==
--- OUTSIDE RECORDS SUMMARY | 2024-04-17 10:00 | XMS_ITS ---
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 Name Role Phone Kady Stout Primary Care Provider Jorge Mccrary Unavailable [phone] Allergies No Known Allergies Reason For Referral Reason see attached order Diagnosis 1 Foot pain, right (M7 9.671) Referral Organization [facility] (PODIATRY) Referring Provider First Name Jorge Referring Provider Last Name Megan Referring Provider Speciality Podiatry Referred Provider Specialty Pharmacist Referral Priority Routine REASON FOR VISIT rt foot pain Medications Medication SIG (Take, Route, Frequency, Duration) Notes Start Date End Date Status predniSONE 10 MG 1 tablet Orally as directed for 10 days two tablets for 5 days then one tablet for 5 days Not-Taking Ibuprofen 400 MG 1 tablet with food or milk as needed Orally Three times a day 04/17/2024 Active predniSONE 10 MG 3 tablets once a day for 3 days, 2 tablets once a day for 3 days, 1 tablet once a day for 3 days Orally for 9 days 04/17/2024 Active Tylenol 325 MG 1 tablet as needed Orally every 4 hrs Active Diclofenac Sodium 75 MG 1 tablet as needed Orally Twice a day for 30 days 04/17/2024 Active Meloxicam 15 MG 1 tablet Orally Once a day for 30 day(s) 07/04/2023 Not-Taking Crestor 5 MG 1 tablet Orally Once a day Active Social History Tobacco Use: Social History Observation Description Date Details (start date - stop date) Current Smoker NA - NA Tobacco Use/Smoking Question Answer Notes Patient is a current smoker Vital Signs Temperature 96.8 degrees Fahrenheit 04/17/20 24 Heart Rate 76 /min 04/17/2024 Respiratory Rate 18 /min 04/17/2024 Height 63 in 04/17/2024 Weight 195 lbs 04/17/2024 BMI 34.54 kg/m2 04/17/2024 Encounters Encounter Location Date Provider Diagnosis [facility] (PODIATRY) [address] [place] [address] [place] [address] 04/17/2024 Jorge Guzman Bunionette of right foot M21.621 ; Other enthesopathy of right foot and ankle M77.51 and Foot pain, right M79.671 Assessments Encounter Date Diagnosis (ICD Code) Assessment Notes Treatment Notes Treatment Clinical Notes Section Notes 04/17/2024 Bunionette of right foot (ICD-10 - M21.621) Patient follows up for new problem related to her right lateral forefoot consistent with tailor's bunion and associated irritation on ill fitting pair shoes. I recommended shoe modification. I recommended NSAIDs and after discussing with her she would like a prescription for diclofenac which was provided. In addition I recommended prednisone taper which was prescribed and topical compound to the local compounding pharmacy. I briefly discussed potential need for surgical excision however patient would like to continue with nonsurgical treatment for now. She will follow-up in 2 to 3 months call sooner if needed no new x-rays are necessary 04/17/2024 Other enthesopathy of right foot and ankle (ICD-10 - M77.51) 04/17/2024 Foot pain, right (ICD-10 - M79.671) Plan Of Treatment Medication Medication Name Sig Start Date Stop Date Notes predniSONE 10 MG 3 tablets once a day for 3 days, 2 tablets once a day for 3 days, 1 tablet once a day for 3 days Orally for 9 days 04/17/2024 Diclofenac Sodium 75 MG 1 tablet as need ed Orally Twice a day for 30 days 04/17/2024 Treatment Notes Assessment Notes Bunionette of right foot Patient follows up for new problem related to her right lateral forefoot consistent with tailor's bunion and associated irritation on ill fitting pair shoes. I recommended shoe modification. I recommended NSAIDs and after discussing with her she would like a prescription for diclofenac which was provided. In addition I recommended prednisone taper which was prescribed and topical compound to the local compounding pharmacy. I briefly discussed potential need for surgical excision however patient would like to continue with nonsurgical treatment for now. She will follow-up in 2 to 3 months call sooner if needed no new x-rays are necessary Pending Test Test Name Order Date XR Foot RT (3 views) * 04/17/2024 Referrals Referral Date Details 04/17/2024 04/17/2024, see dieudonne chapman order Progress Notes * Candis PEREZDOB:1975 (49 yo F)Acc No.[id number]:04/17/2024 Follow Up Patient: Candis WALL Provider: Aren Guzman DPM, MS :1975 A ge:49 Y S ex:Female Date:04/17/2024 Address:[address] [place] [address], [place], [id number] Pcp:Kady Stout Check In:01:46 PM ESTCheck O ut:02:51 PM EST Subjective: * Chief Complaints: * R t foot pain * HPI: G eneral: States about 2 months ago (February 2024) noticed a knot on right lateral 1st metatarsal area. Was rubbing in shoes. tried a new pair of shoes with wider toe space and seemed to help. States worried about the knot that developed and wanted to get it checked out. Pain only with touch or when rubbing in shoes. Was taking mobic and ran out of it so has been taking ibuprofen . * ROS: G eneral/Constitutional: Chills d enies. F ever d enies. W eight gain?denies. W eight loss d enies. S kin: Skin Ulcers d enies. S kin lesion(s) d enies. ? C ardiovascular: Difficulty breathing on exertion d enies. L eg cramps?denies. E manuel d enies. C hest pain d enies. R espiratory: Difficulty breathing d enies. D yspnea d enies.?Cough d enies. G astrointestinal: Diarrhea d enies. N ausea d enies. V omiting?denies. M usculoskeletal: Bone/Joint Symptoms d enies. C residential Pain d enies.?Leg cramps d enies. N eurologic: Numbness d enies. T ingling d enies . G ait abnormality d enies. ? H ematology: Anemia D enies. E asy bruising d enies. ? A ll Other Systems: Review of Systems (ROS) S ee HPI for details,All others negative except those mentioned in HPI. 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 * Social History: T obacco Use: T obacco Use/Smoking P atient is a c urrent smoker * Medications: T akingCrestor(Rosuvastatin Calcium) 5 MG Tablet 1 tablet Orally Once a day Ibuprofen 400 MG Tablet 1 tablet with food or milk as needed Orally Three times a day Tylenol(Acetaminophen) 325 MG Tablet 1 tablet as needed Orally every 4 hrs Taking Crestor(Rosuvastatin Calcium) 5 MG Tablet 1 tablet Orally Once a day Taking Ibuprofen 400 MG Tablet 1 tablet with food or milk as needed Orally Three times a day Taking Tylenol(Acetaminophen) 325 MG Tablet 1 tablet as needed Orally every 4 hrs Not-Taking/PRNMeloxicam 15 MG Tablet 1 tablet Orally Once a day predniSONE 10 MG Tablet 1 tablet Orally as directed , Notes to Pharmacist: two tablets for 5 days then one tablet for 5 daysMedication List reviewed and reconciled with the patientNot-Taking/PRN Meloxicam 15 MG Tablet 1 tablet Orally Once a day Not-Taking/PRN predniSONE 10 MG Tablet 1 tablet Orally as directed , Notes to Pharmacist: two tablets for 5 days then one tablet for 5 daysMedication List reviewed and reconciled with the patient * Allergies: N .K.D.A.no[Allergies Verified] Objective: * Vitals: W t:195lbs, Ht: 63 in, Temp:96.8F, HR:76/min, RR:18/min, BMI:34.54Index, Pain scale:31-10, Ht-cm: 160.02 cm, Wt-k.45 kg. * Examination: P odiatry Examination: SKIN: s kin intact, n o sign of infection. MUSCULOSKELETAL: M ild pain on palpation overLateral eminence of the fifth metatarsal head on the right foot. Mild fifth toe adductovarus deformity which is reducible. There is associated soft tissue swelling noted over the lateral eminence of the fifth metatarsal head consistent with bursitis. NEUROLOGICAL: l ight touch sensation intact, n egative tinel's sign. VASCULAR: P edal pulses palpable, C apillaryrefill is brisk to toe, D igitalhair intact. X -rays: x-rays were obtained & reviewed in my office. No evidence of trauma or fracture. Mild prominence of the lateral eminence of the fifth metatarsal head. Assessment: * Assessment: 1. B unionette of right foot - M21.621 (Primary) 2 . O ther enthesopathy of right foot and ankle - M77.51 3 . F oot pain, right - M79.671 Plan: * Treatment: 2. F oot pain, right Start predniSONE Tablet, 10 MG, 3 tablets once a day for 3 days, 2 tablets once a day for 3 days, 1 tablet once a day for 3 days, Orally, 9 days, 18 tablet, Refills 0; S tart Diclofenac Sodium Tablet Delayed Release, 75 MG, 1 tablet as needed, Orally, Twice a day, 30 days, 60 Tablet, Refills 2.? I maging: XR Foot RT (3 views) * Referral To:Pharmacist Reason:see attached order * Procedure Codes: * Preventive Medicine: Screenings/Counseling: F ALL RISK SCREENING Fall Risk Assessment: N o falls in the past year B WI ACTION PLAN Below Normal BMI Follow-up D ietary management education, guidance, and counseling * * Sign off status: Completed Visit Status: C HK (Check Out) true * Provider: Aren Guzman DPM, MS Date: 04/17/2024 Generated for Mari colon/Lobito/Stacyitting on: 04/10/2025 11:07 AM EDT History and Physical Notes * HPI (History of Present Illness) Category Sub-Category Detail Notes Category Not es General States about 2 months ago (February 2024) noticed a knot on right lateral 1st metatarsal area. Was rubbing in shoes. tried a new pair of shoes with wider toe space and seemed to help. States worried about the knot that developed and wanted to get it checked out. Pain only with touch or when rubbing in shoes. Was taking mobic and ran out of it so has been taking ibuprofen . Examination Category Sub-Category Detail Notes Category Not es Podiatry Examination SKIN: skin intact, no sign of infection X-rays: x-rays were obtained & reviewed in my office. No evidence of trauma or fracture. Mild prominence of the lateral eminence of the fifth metatarsal head MUSCULOSKELETAL: Mild pain on palpati on overLateral eminence of the fifth metatarsal head on the right foot. Mild fifth toe adductovarus deformity which is reducible. There is associated soft tissue swelling noted over the lateral eminence of the fifth metatarsal head consistent with bursitis NEUROLOGICAL: light touch sensatio n intact, negative tinel's sign VASCULAR: Pedal pulses palpable, Capillary refill is brisk to toe, Digital hair intact Consultation Request Notes Referral Date Referring Provider Referred Provider Not es 04/17/2024 Jorge Guzman , see attach ed order
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
--- OUTSIDE RECORDS SUMMARY | 2025-04-10 11:08 | XMS_ITS | Clinical Summary ---
Author Organization [facility] Address [address], [address] [place] [address] Care Team Providers Care Insulation Inspector Name Role Phone Alex Mayfield MD Primary Care Provider [phone] Allergies Active Allergy Reactions Criticality Noted Date Comments Etonogestrel-Ethinyl Estradiol 09/28/2020 Oxaprozin Medium 01/26/2016 Other reaction(s): Tachycardia Medications naproxen (NAPROSYN) 500 MG tablet Take 500 mg by mouth 2 times daily (with meals) 0 05/04/2015 Active Bioflavonoid Products (BIOFLEX PO) Take by mouth daily 2 tabs OTC Active Ascorbic Acid (VITAMIN C) 500 MG tablet Take 1,000 mg by mouth daily OTC Active CALCIUM-VITAMIN D PO Take by mouth daily 600/800 mg OTC Active Chlorpheniramin e Maleate (ALLERGY PO) Take by mouth daily OTC Active diphenhydrAMINE -APAP, sleep, (TYLENOL PM EXTRA STRENGTH) 25-500 MG tablet Take 1 tablet by mouth nightly as needed for Sleep Active ibuprofen (ADVIL;MOTRIN) 200 MG tablet Take 200 mg by mouth every 6 hours as needed for Pain OTC Active fluticasone (FLONASE) 50 MCG/ACT nasal spray 1 spray by Nasal route daily bilat nares Active ZINC ASPARTATE PO Take by mouth Active Active Problems Problem Noted Date Diagnosed Date IUD (intrauterine device) in place 06/11/2015 BMI 33.0-33.9,adult 06/11/2015 Family History Medical History Relation Name Comments No Known Problems Brother Asthma Father No Known Problems Maternal Grandfather No Known Problems Maternal Grandmother No Known Problems Mother Other Other goiter, GMGM. m aternal great aunt breast cancer. no family h/o DVT or ovaraian cancer Cancer Paternal Grandfather prostat e Lupus Paternal Grandmother Rheum Arthritis Paternal Grandmother Relation Name Status Comments Brother Alive Father Alive Maternal Grandfather Alive Maternal Grandmother Alive Mother Alive Other Paternal Grandfather Paternal Grandmother Social History Tobacco Use Types Packs/Day Years Used Date Smoking Tobacco: Former Smokeless Tobacco: Never Comments:uses e-cigs Alcohol Use Standard Drinks/Week Comments Yes 0 (1 standard drink = 0.6 oz pur e alcohol) occas Comments No Sex and Gender Information Value Date Recorded Sex Assigned at Not on file Legal Sex Female 12:51 PM EST Gender Identity Not on file Sexual Orientation Not on file Last Filed Vital Signs Vital Sign Reading Time Taken Comments Blood Pressure 120/71 09/28/2020 4:12 PM EST Pulse 78 10/27/2015 3:52 PM EST Temperature - - Respiratory Rate - - Oxygen Saturation - - Inhaled Oxygen Concentration - - Weight 84.6 kg (186 lb 9.6 oz) 09/28/2020 4:12 P M EST Height 157.5 cm (5' 2 ) 09/28/2020 4:12 PM EST Body Mass Index 34.13 09/28/2020 4:12 PM EST Plan of Treatment Not on file Insurance [facility] Care Teams Insulation Inspector Relationship Specialty Start Date End Date Alex Mayfield MD [address] [place] [address] PCP - General 10/08/15
--- OUTSIDE RECORDS SUMMARY | 2025-04-10 11:08 | XMS_ITS | Patient Health Record ---
Author Organization [facility] [place] Address [address] [place] [address] Care Team Providers Care Body Die Maker Name Role Phone Kady Stout Primary Care Provider Alena Mccrary [phone] Allergies No Known Allergies Results Component Value Reference Range Notes XR foot RT min 3V (Not yet r eviewed by provider) Interpretation: Performing Lab: Notes/Report: Source Facility: [place] [address] XRay Report Signed Patient: PRANAV PEREZ MR#: [id number] : 1975 Acct:[id number] Age/Sex: 49 / F ADM Date: 04/17/24 Loc: EC Attending Dr: Alena Guzman D.P.M. Ordering Physician: Alena Guzman D.P.M. Date of Service: 04/17/24 Procedure(s): XR foot RT min 3V Accession Number(s): [id number] cc: Alena Guzman D.P.M.; Physician,Non-Staff M.DJesusita [facility] [place] [address] Patient Name: PRANAV PEREZ MRN: [id number] date: 1975 Sex: F Assigned Patient Location: Current Patient Location: Accession/Order Number: [id number] Exam Date: 04/17/2024 13:48 Report Date: 04/22/2024 07:27 At the request of: ALENA GUZMAN Procedure: XR foot RT min 3V PROCEDURE: XR foot RT min 3V COMPARISON: 07/04/2023 HISTORY: RIGHT FOOT PAIN FINDINGS: BONES:No fracture, acute abnormality, or significant arthropathy. Minimal enthesopathic spurring of the calcaneus at the Achilles and plantar insertions SOFT TISSUES:Negative. No visible soft tissue swelling. EFFUSION:None visible. OTHER: Negative. XR/XR foot RT min 3V IMPRESSION: No acute abnormality Electronically authenticated by: PREET BYRD Date: 04/22/2024 07:27 Dictated By: Preet Byrd M.D. Signed By: 04/22/24729 DD/ 6 TD/TT: Chemist Intern: [place] [address] XRay Report Signed Patient: SERGIO PEREZ MR#: [id number] : 1975 Acct:[id number] Age/Sex: 49 / F ADM Date: 04/17/24 Loc: EC Attending Dr: Alena Guzman D.P.M. Ordering Physician: Alena Guzman D.P.M. Date of Service: 04/17/24 Procedure(s): XR foot RT min 3V Accession Number(s): [id number] cc: Alena Guzman D.P.M.; Physician,Non-Staff [place] [address] Patient Name: PRANAV PEREZ MRN: [id number] date: 1975 Sex: F Assigned Patient Location: Current Patient Location: Accession/Order Numb er: [id number] Exam Date: 04/17/2024 13:48 Report Date: 04/22/2024 07:27 At the request of: ALENA GUZMAN Procedure: XR foot RT min 3V PROCEDURE: XR foot RT min 3V COMPARISON: 07/04/2023 HISTORY: RIGHT FOOT PAIN FINDINGS: BONES:No fracture, a cute abnormality, or significant arthropathy. Minimal enthesopathic spurri ng of the calcaneus at the Achilles and plantar insertions SOFT TISSUES:Negativ e. No visible soft tissue swelling. EFFUSION:None visible. OTHER: Negative. X R/XR foot RT min 3V IMPRESSION: No acute abnormality Electronically authe nticated by: PREET BYRD Date: 04/22/2024 07:27 Dictated By: Preet Byrd M.D. Signed By: 04/22/24729 DD/ 6 TD/TT: Chemist Intern: Reason For Referral Reason see attached order Diagnosis 1 Foot pain, right (M7 9.671) Referral Organization [facility]) Referring Provider First Name Alena Referring Provider Last Name [facility] Referring Provider Speciality Podiatry Referred Provider Specialty Pharmacist Referral Priority Routine Medications Medication SIG (Take, Route, Frequency, Duration) Notes Start Date End Date Status predniSONE 10 MG 1 tablet Orally as directed for 10 days two tablets for 5 days then one tablet for 5 days Not-Taking Meloxicam 15 MG 1 tablet Orally Once a day for 30 day(s) 07/04/2023 Not-Taking Crestor 5 MG 1 tablet Orally Once a day Active Ibuprofen 400 MG 1 tablet with food [...] a day for 30 days 04/17/2024 Active Social History Tobacco Use: Social History Observation Description Date Details (start date - stop date) Current Smoker NA - NA Tobacco Use/Smoking Question Answer Notes Patient is a current smoker Problems Problem Type SNOMED Code ICD Code Onset Dates Problem Status W/U Status Risk Notes Problem 274599467 Primary osteoarthritis, unspecified ankle and foot (M19.079) Active confirmed Problem 3361932546054956 Posterior tibia l tendinitis, right leg (M76.821) Active confirmed Problem 7307218 Other enthesopathy of right foot and ankle (M77.51) Active confirmed Vital Signs Heart Rate 76 /min 04/17/2024 Temperature 96.8 degrees Fahrenheit 04/17/2024 Respiratory Rate 18 /min 04/17/2024 Height 63 in 04/17/2024 Weight 195 lbs 04/17/2024 BMI 34.54 kg/m2 04/17/2024 Encounters Encounter Location Date Provider Diagnosis [facility] [address] [place] [address] [place] [address] 04/17/2024 Alena Guzman Bunionette of right foot M21.621 ; [...] right (ICD-10 - M79.671) Plan Of Treatment Pending Test Test Name Order Date XR Foot RT (3 views) * 04/17/2024 XR foot RT min 3V 04/22/2024 Insurance Providers Payer Name Payer Address Payer Phone Subscriber Number Group Number Insured Name Patient Relationship to Insured Coverage Start Date Coverage End Date MMO [address] [place], [place] [id number] Pranav Perez Self - patient is the insured Medical (General) History Medical History History ICD Code asthma Left foot pain M79.672 Right foot pain M79.671 Posterior tibial tendinitis of right leg M76.821 Capsulitis of right foot M77.51 Primary osteoarthritis of ankle M19.079
--- OUTSIDE RECORDS SUMMARY | 2025-04-10 11:08 | XMS_ITS | Clinical Summary ---
Author Organization [facility] Address [id number] [address] [place] [address] Care Team Providers Care Paint And Table Edger Name Role Phone Alex Mayfield MD Primary Care Provider [phone] Allergies Active Allergy Reactions Criticality Noted Date Comments Oxaprozin Tachycardia Medium 01/26/2016 Medications calcium carbonate-vitami n D3 (OSCAL 500 + D) 500 mg(1,250mg) -200 units per tablet Take 1 tablet by mouth daily. Active naproxen (NAPROSYN) 250 mg tablet Take 500 mg by mouth 2 (two) times a day with meals. Active ascorbic acid (VITAMIN C) 500 mg tablet Take 500 mg by mouth 2 (two) times a day. Active Active Problems No known active problems Family History Medical History Relation Name Comments Hypertension Maternal Grandmother Relation Name Status Comments Maternal Grandmother Alive Social History Tobacco Use Types Packs/Day Years Used Date Smoking Tobacco: Every Day Vaping/E-cigarettes Smokeless Tobacco: Never Alcohol Use Standard Drinks/Week Comments No 0 (1 standard drink = 0.6 oz pur e alcohol) Childcare Answer Date Recorded Childcare Unknown 02/20/2019 Employment Answer Date Recorded Employment Unknown 02/20/2019 Purpose - Life Answer Date Recorded Purpose and direction in life Unknown Comments No Sex and Gender Information Value Date Recorded Sex Assigned at Not on file Legal Sex Female 11:48 AM EDT Gender Identity Not on file Sexual Orientation Not on file Last Filed Vital Signs Vital Sign Reading Time Taken Comments Blood Pressure 120/75 01/26/2016 7:52 AM EDT Pulse 57 01/26/2016 7:52 AM EDT Temperature 36.3 C (97.3 F) 01/26/2016 7:52 AM EDT Respiratory Rate 15 01/26/2016 7:52 AM EDT Oxygen Saturation 100% 01/26/2016 7:52 AM EDT Inhaled Oxygen Concentration - - Weight 79.4 kg (175 lb) 01/26/2016 6:15 AM EDT Height 160 cm (5' 3 ) 01/26/2016 6:15 AM EDT Body Mass Index 31 01/26/2016 6:15 AM EDT Plan of Treatment Not on file Medical Devices Not on file Insurance [employer] Care Teams Paint And Table Edger Relationship Specialty Start Date End Date Alex Mayfield MD [address] [place] [address] PCP - General Family Medicine 01/25/16
--- OUTSIDE RECORDS SUMMARY | 2025-04-10 11:08 | XMS_ITS | Clinical Summary ---
Author Organization [facility] Address [address] [facility] [place] [address] Care Team Providers Care Grain Farmer Name Role Phone Unavailable Primary Care Provider Unavailabl e Allergies Active Allergy Reactions Criticality Noted Date Comments Doxycycline GI intolerance 06/07/2016 Medications simvastatin (Zocor) 5 MG tablet .qod 12/12/2023 Active Calcium Carb-Cholecalcif ross (Oyster Shell Calcium w/D) 500-5 MG-MCG tablet Take 1 tablet by mouth in the morning. Active ascorbic acid (Vitamin C) 500 MG tablet Take 1,000 mg by mouth Active Plaquenil 200 MG tablet 06/07/2024 Active Active Problems No known active problems Social History Tobacco Use Types Packs/Day Years Used Date Smoking Tobacco: Never Smokeless Tobacco: Never Tobacco Cessation:Counseling Given: Not Answered Comments Unknown Sex and Gender Information Value Date Recorded Sex Assigned at Not on file Legal Sex Female 7:40 PM EDT Gender Identity Not on file Sexual Orientation Not on file Plan of Treatment Upcoming Encounters Date Type Department Care Team (Late st Contact Info) Description 06/24/2025 11:00 AM EDT Office Visit [facility] [address] [place] [address] Christiane Mcgraw, [place] [address] [place] [address] Insurance [employer]
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
--- OUTSIDE RECORDS SUMMARY | 2025-04-10 11:14 | XMS_ITS | CCD ---
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 Blood Coun ton 03-11-2025 Mean Corpuscular HGB Conc 34.3 g/dL Normal 32.0-35.0 [facility] Comment on above: Performed By: #### P ILLAR CMP, PILLAR CBC, PILLAR LIPID ####[address] NRBC% 0.1 /100{WBC} Normal 0-0.5 [facility] Comment on above: Performed By: #### P ILLAR CMP, PILLAR CBC, PILLAR LIPID ####[address] White Blood Count 6.8 [CFU]/mL Normal 3.8-11.6 [facility] Comment on above: Performed By: #### P ILLAR CMP, PILLAR CBC, PILLAR LIPID ####[address] Employee Lipid Profileon LDL Cholesterol,Calculated 120 mg/dL High 0-100 [facility] Comment on above: Result Comment: LDL ATP III CLASSIFICATION LDL less than 100 mg/dL Optimal LDL 100-129 mg/dL Near or above optimal LDL 130-159 mg/dL Borderline high LDL 160-189 mg/dL High LDL greater than 189 mg/dL Very high Performed By: #### P ILLAR CMP, PILLAR CBC, PILLAR LIPID ####[address] Triglyceride w/Reflex 191 mg/dL High 0-149 [facility] Comment on above: Result Comment: TRIG ATP III CLASSIFICATION TRIG less than 150 mg/dL Normal TRIG 150-199 mg/dL Borderline high TRIG 200-500 mg/dL High TRIG greater than 500 mg/dL Very high Standard traceable to the Center for Disease Conrtrol and Prevention (CDC) test method. Performed By: #### P ILLAR CMP, PILLAR CBC, PILLAR LIPID ####[place] [address] VLDL CHOLESTEROL 38 mg/dL Normal [facility] Comment on above: Performed By: #### P ILLAR CMP, PILLAR CBC, PILLAR LIPID ####[place] [address] Eosinophils [#/volume] in Bl ood by Automated countOrdered By: Matthew Morley on 03-11-2025 Eosinophils (Bld) [#/Vol] 0.0 10*3/uL Normal 0.0-0.45 [facility] Comment on above: Performed By: #### P ILLAR CMP, PILLAR CBC, PILLAR LIPID ####[place] [address] Eosinophils/100 leukocytes i n Blood by Automated countOrdered By: Matthew Morley on 03-11-2025 Eosinophils/100 WBC (Bld) 0.5 % Normal . [facility] Comment on above: Performed By: #### P ILLAR CMP, PILLAR CBC, PILLAR LIPID ####[address] Epithelial cells.squamous [# /area] in Urine sediment by Automated countOrdered By: Jerica Chandler on 03-11-2025 Epithelial cells.squamous Auto (Urine sed) [#/Area] 1-2 [HPF] 0-2 [facility] Erythrocyte Sedimentation Ra miles 03-11-2025 ESR (Bld) [Velocity] 12 mm/h Normal 0-29 [facility] Comment on above: Result Comment: PERF ORMED BY: [facility] [address] [place] [address] PATHOLOGIST MANAGER HVAC CRISTIANA VELOZ M.D. Performed By: #### C H50, C4, C3 ####[facility] ,#### CRP, ADDONUAPLUS, ESR ####[address] Erythrocyte distribution wid th [Ratio] by Automated countOrdered By: Matthew Morley on 03-11-2025 Erythrocyte distribution width (RBC) [Ratio] 13.6 % Normal 11.9-15.3 [facility] Comment on above: Performed By: #### P ILLAR CMP, PILLAR CBC, PILLAR LIPID ####[address] Erythrocyte sedimentation ra te by Photometric methodOrdered By: Jerica Chandler on 03-11-2025 ESR Photometric method (Bld) [Velocity] 12 mm/hr 0-29 [facility] Erythrocytes [#/area] in Uri ne sediment by Automated countOrdered By: Jerica Chandler on 03-11-2025 RBC Auto (Urine sed) [#/Area] 3-4 [HPF] 0-4 [facility] Erythrocytes [#/volume] in B lood by Automated countOrdered By: Matthew Morley on 03-11-2025 RBC (Bld) [#/Vol] 4.89 10*6/uL Normal 3.60-5.00 [facility] Comment on above: Performed By: #### P ILLAR CMP, PILLAR CBC, PILLAR LIPID ####[address] Glucose [Mass/volume] in Ser um or PlasmaOrdered By: Matthew Morley on 03-11-2025 Glucose [Mass/Vol] 84 mg/dL Normal 70-100 [facility] Comment on above: Performed By: #### P ILLAR CMP, PILLAR CBC, PILLAR LIPID ####[address] Glucose [Mass/volume] in Uri ne by Test stripOrdered By: Jerica Chandler on 07-01-2025 Glucose Test strip (U) [Mass/Vol] Normal mg/dL Normal [facility] Hematocrit [Volume Fraction] of Blood by Automated countOrdered By: Matthew Morley on 03-11-2025 Hematocrit (Bld) [Volume fraction] 43.1 % Normal 34.0-46.4 [facility] Comment on above: Performed By: #### P ILLAR CMP, PILLAR CBC, PILLAR LIPID ####[address] Hemoglobin Test strip Ql (U) Ordered By: Jerica Chandler on 03-11-2025 Hemoglobin Ql (U) Negative Negative [facility] Hemoglobin [Mass/volume] in BloodOrdered By: Matthew Morley on 03-11-2025 Hemoglobin (Bld) [Mass/Vol] 14.8 g/dL Normal 11.8-15.4 [facility] Comment on above: Performed By: #### P ILLAR CMP, PILLAR CBC, PILLAR LIPID ####[address] Hyaline casts [#/area] in Ur ine sediment by Automated countOrdered By: Jerica Chandler on 03-11-2025 Hyaline casts Auto (Urine sed) [#/Area] None [LPF] 0-8 [facility] Ketones [Presence] in Urine by Test stripOrdered By: Jerica Chandler on 03-11-2025 Ketones Ql (U) Negative Normal Negative [facility] Comment on above: Order Comment: Name Collection Type:: Clean-Voided Midstream Performed By: #### C H50, C4, C3 ####[facility] ,#### CRP, ADDONUAPLUS, ESR ####[place] [id number] [facility] Leukocyte esterase [Presence ] in Urine by Test stripOrdered By: Jerica Chandler on 03-11-2025 Leukocyte esterase Test strip Ql (U) Negative Normal Negative [facility] Comment on above: Order Comment: Name Collection Type:: Clean-Voided Midstream Performed By: #### C H50, C4, C3 ####[facility] ,#### CRP, ADDONUAPLUS, ESR ####[address] Leukocytes [#/area] in Urine sediment by Automated countOrdered By: Jerica Chandler on 03-11-2025 WBC Auto (Urine sed) [#/Area] 1-2 [HPF] 0-4 [facility] Leukocytes [#/volume] correc yvrose for nucleated erythrocytes in Blood by Automated counOrdered By: Matthew Morley on 03-11-2025 WBC corrected for nucl RBC Auto (Bld) [#/Vol] 6.8 10*3/uL 3.8-11.6 [facility] Leukocytes [#/volume] in Blo od by Automated countOrdered By: Matthew Morley on 03-11-2025 WBC (Bld) [#/Vol] 6.8 10*3/uL Normal 3.8-11.6 [facility] Comment on above: Performed By: #### P ILLAR CMP, PILLAR CBC, PILLAR LIPID ####[address] Lymphocytes [#/volume] in Bl ood by Automated countOrdered By: Matthew Morley on 03-11-2025 Lymphocytes (Bld) [#/Vol] 1.7 10*3/uL Normal 1.00-4.8 [facility] Comment on above: Performed By: #### P ILLAR CMP, PILLAR CBC, PILLAR LIPID ####[address] Lymphocytes/100 leukocytes i n Blood by Automated countOrdered By: Matthew Morley on 03-11-2025 Lymphocytes/100 WBC (Bld) 25.2 % Normal . [facility] Comment on above: Performed By: #### P ILLAR CMP, PILLAR CBC, PILLAR LIPID ####[place] [id number] [place] MCH [Entitic mass] by Automa yvrose countOrdered By: Matthew Morley on 03-11-2025 MCH (RBC) [Entitic mass] 30.3 pg Normal 24.7-34.3 [facility] Comment on above: Performed By: #### P ILLAR CMP, PILLAR CBC, PILLAR LIPID ####[address] MCHC Auto (RBC) [Mass/Vol]Or dered By: Matthew Morley on 03-11-2025 MCHC (RBC) [Mass/Vol] 34.3 g/dL 32.0-35.0 [facility] MCV [Entitic volume] by Auto mated countOrdered By: Matthew Morley on 03-11-2025 MCV (RBC) [Entitic vol] 88.1 fL Normal 80-100 [facility] Comment on above: Performed By: #### P ILLAR CMP, PILLAR CBC, PILLAR LIPID ####[address] Monocytes [#/volume] in Bloo d by Automated countOrdered By: Matthew Morley on 03-11-2025 Monocytes (Bld) [#/Vol] 0.3 10*3/uL Normal 0.0-0.8 [facility] Comment on above: Performed By: #### P ILLAR CMP, PILLAR CBC, PILLAR LIPID ####[address] Monocytes/100 leukocytes in Blood by Automated countOrdered By: Matthew Morley on 03-11-2025 Monocytes/100 WBC (Bld) 4.6 % Normal . [facility] Comment on above: Performed By: #### P ILLAR CMP, PILLAR CBC, PILLAR LIPID ####[address] Mucus [Presence] in Urine by AutomatedOrdered By: Jerica Chandler on 03-11-2025 Mucus Auto Ql (U) Rare [LPF] [facility] Neutrophils [#/volume] in Bl ood by Automated countOrdered By: Matthew Morley on 03-11-2025 Neutrophils (Bld) [#/Vol] 4.7 10*3/uL Normal 1.8-7.7 [facility] Comment on above: Performed By: #### P ILLAR CMP, PILLAR CBC, PILLAR LIPID ####[place] [address] [place] [id number] [place] Neutrophils/100 leukocytes i n Blood by Automated countOrdered By: Matthew Morley on 03-11-2025 Neutrophils/100 WBC (Bld) 69.1 % Normal . [facility] Comment on above: Performed By: #### P ILLAR CMP, PILLAR CBC, PILLAR LIPID ####[place] [address] [place] [id number] [facility] Nitrite Test strip Ql (U)Ord ered By: Jerica Chandler on 03-11-2025 Nitrite Ql (U) Negative Negative [facility] No Panel InformationOrdered By: Matthew Morley on 03-11-2025 Estimated GFR (CKD-EPI) > 60.0 mL/Min [facility] Creatinine Clearance (Chem N/A [facility] Nucleated erythrocytes [Pres ence] in Blood by Automated countOrdered By: Matthew Morley on 03-11-2025 Nucleated RBC Auto Ql (Bld) 0.1 /100{WBC} 0-0.5 [facility] Platelet mean volume [Entiti c volume] in Blood by Automated countOrdered By: Matthew Morley on 03-11-2025 Platelet mean volume (Bld) [Entitic vol] 7.5 fL Normal 6.3-10.7 [facility] Comment on above: Performed By: #### P ILLAR CMP, PILLAR CBC, PILLAR LIPID ####[place] [id number] [place] Platelets [#/volume] in Bloo d by Automated countOrdered By: Matthew Morley on 03-11-2025 Platelets (Bld) [#/Vol] 306 10*3/uL Normal 150-450 [facility] Comment on above: Performed By: #### P ILLAR CMP, PILLAR CBC, PILLAR LIPID ####[place] [address] [place] [id number] [facility] Potassium [Moles/volume] in Serum or PlasmaOrdered By: Matthew Morley on 03-11-2025 Potassium [Moles/Vol] 4.5 mmol/L Normal 3.5-5.1 [facility] Comment on above: Performed By: #### P ILLAR CMP, PILLAR CBC, PILLAR LIPID ####[address] Protein Test strip (U) [Mass /Vol]Ordered By: Jerica Chandler on 03-11-2025 Protein (U) [Mass/Vol] Negative Negative [facility] [place] Protein [Mass/volume] in Ser um or PlasmaOrdered By: Matthew Morley on 03-11-2025 Protein [Mass/Vol] 7.2 g/dL Normal 6.4-8.9 [facility] Comment on above: Performed By: #### P ILLAR CMP, PILLAR CBC, PILLAR LIPID ####[address] Serum globulin measurement b y calculation (mass/volume)Ordered By: Matthew Morley on 03-11-2025 Globulin (S) [Mass/Vol] 2.8 g/dL [facility] Comment on above: Performed By: #### P ILLAR CMP, PILLAR CBC, PILLAR LIPID ####[address] Serum or plasma albumin/glob ulin mass ratioOrdered By: Matthew Morley on 03-11-2025 Albumin/Globulin [Mass ratio] 1.6 {ratio} [facility] Comment on above: Performed By: #### P ILLAR CMP, PILLAR CBC, PILLAR LIPID ####[address] Serum or plasma anion gap de terminationOrdered By: Matthew Morley on 03-11-2025 Anion gap [Moles/Vol] 11.2 mmol/L Normal 6.0-15.0 [facility] [place] Comment on above: Performed By: #### P ILLAR CMP, PILLAR CBC, PILLAR LIPID ####[address] Serum or plasma complement C 3 measurement (mass/volume)Ordered By: Jerica Chandler on 03-11-2025 Complement C3 [Mass/Vol] 165 mg/dL 82-167 [facility] Comment on above: Performed at: [address] [id number] Director: Leonard Moreno PhD, Phone: [phone] Serum or plasma complement C 4 measurement (mass/volume)Ordered By: Jerica Chandler on 03-11-2025 Complement C4 [Mass/Vol] 29 mg/dL 12-38 [facility] Serum or plasma total choles terol/high density lipoprotein (HDL) cholesterol mass ratOrdered By: Matthew Morley on 03-11-2025 Cholesterol.total/Chol esterol in HDL [Mass ratio] 4.2 {ratio} Normal <5.0 [facility] Comment on above: Result Comment: PERF ORMED BY: [facility] [address] [place] [address] PATHOLOGIST MANAGER HVAC CRISTIANA VELOZ M.D. Performed By: #### P ILLAR CMP, PILLAR CBC, PILLAR LIPID ####[place] [address] [place] [id number] [facility] Sodium [Moles/volume] in Ser um or PlasmaOrdered By: Matthew Morley on 03-11-2025 Sodium [Moles/Vol] 136 mmol/L Normal 136-145 [facility] Comment on above: Performed By: #### P ILLAR CMP, PILLAR CBC, PILLAR LIPID ####[place] [address] [place] [address] [place] Specific gravity Test strip (U) [Rel density]Ordered By: Jerica Chandler on 03-11-2025 Specific gravity (U) [Rel density] 1.015 1.001-1.03 0 [facility] Total hemolytic complement C H50 assayOrdered By: Jerica Chandler on 03-11-2025 Total hemolytic complement CH50 assay 60 U/mL >41 [facility] Comment on above: Age Male Female 1 - 30 days [...] table above to determine out of range values.Performed at: - [facility] [id number] Director: Leonard Moreno PhD, Phone: [phone] Triglyceride [Mass/volume] i n Serum or PlasmaOrdered By: Matthew Morley on 03-11-2025 Triglyceride [Mass/Vol] 191 mg/dL High 0-149 [facility] Comment on above: TRIG ATP III CLASSIF ICATIONTRIG less than 150 mg/dL NormalTRIG 150-199 mg/dL Borderline highTRIG 200-500 mg/dL High TRIG greater than 500 mg/dL Very highStandard traceable to the Center for Disease Conrtrol and Prevention (CDC) test method. Urea nitrogen [Mass/volume] in Serum or PlasmaOrdered By: Matthew Morley on 03-11-2025 Urea nitrogen [Mass/Vol] 11 mg/dL Normal 7-25 [facility] Comment on above: Performed By: #### P ILLAR CMP, PILLAR CBC, PILLAR LIPID ####[facility] [address] [place] [address] [facility] Urobilinogen Test strip (U) [Mass/Vol]Ordered By: Jerica Chandler on 03-11-2025 Urobilinogen (U) [Mass/Vol] Normal mg/dL Normal [facility] Vitamin D 25 Hydroxy Totalon 03-11-2025 Vitamin D 25 Hydroxy Total 36.9 ng/mL Normal 30-100 [facility] Comment on above: Result Comment: Hemo lysis is present at a level that could interfere with the result. Contact lab if redraw is required VITAMIN D STATUS 25(OH)VITAMIN D RANGE (ng/mL) Deficient <20 Insufficient 20 to <30 Sufficient 30 to 100 Reference: Silver MF,Juan NC, Brigido CHRISTIANSON, et al. Evaluation,treatment, and prevention of vitamin D deficiency; an Endocrine Society clinical practice guideline. JCEM. 2010; 96(7):1911-30. PERFORMED BY: [facility] [address] [place] [address] PATHOLOGIST MANAGER HVAC CRISTIANA VELOZ M.D. Performed By: #### V [id number] #### [facility] [address] [place] [id number] [facility] Vitamin D+Metabolites [Mass/ volume] in Serum or PlasmaOrdered By: Kady Stout on 03-11-2025 Vitamin D+Metabolites [Mass/Vol] 36.9 ng/mL 30-100 [facility] Comment on above: Hemolysis is present at a level that could interfere with the result.Contact lab if redraw is requiredVITAMIN D STATUS 25(OH)VITAMIN D RANGE (ng/mL) Deficient <20 Insufficient 20 to <30Sufficient 30 to 100Reference: Silver MF,Juan NC, Brigido CHRISTIANSON, et al. Evaluation,treatment, and prevention of vitamin D deficiency; an Endocrine Society clinical practice guideline. JCEM. 2010; 96(7):1911-30. pH of Urine by Test stripOrd ered By: Jerica Chandler on 03-11-2025 pH (U) 8.0 [pH] Normal 5.0-9.0 [facility] Comment on above: Order Comment: Name Collection Type:: Clean-Voided Midstream Performed By: #### C H50, C4, C3 ####[facility] ,#### CRP, ADDONUAPLUS, ESR ####[facility] [id number] [place] [id number] [facility] No Panel Informationon 12-17 [facility] Glucose [Mass/volume] in Ser um or PlasmaOrdered By: Kady Stout on 06-26-2024 Glucose [Mass/Vol] 81 mg/dL Normal 70-100 [facility] Comment on above: ADA recommended refe rence rangeRandom Glucose Reference Range is dependent on time and content of last meal. Glucose of more than 200 mg/dL in a nonstressed, ambulatory subject supports the diagnosis of Diabetes Mellitus. Result Comment: [place] om Glucose Reference Range is dependent on time and content of last meal. Glucose of more than 200 mg/dL in a nonstressed, ambulatory subject supports the diagnosis of Diabetes Mellitus. ADA recommended reference range Performed By: #### V [id number], GLU #### [facility] [address] [place] [id number] [facility] Vitamin D 25 Hydroxy Totalon 06-26-2024 Vitamin D 25 Hydroxy Total 17.6 ng/mL Low 30-100 [facility] Comment on above: Result Comment: SUNSHINE MIN D STATUS 25(OH)VITAMIN D RANGE (ng/mL) Deficient <20 Insufficient 20 to <30 Sufficient 30 to 100 Reference: Juan Ospina, Brigido CHRISTIANSON, et al. Evaluation,treatment, and prevention of vitamin D deficiency; an Endocrine Society clinical practice guideline. JCEM. 2010; 96(7):1911-30. PERFORMED BY: [place] [address] PATHOLOGIST MANAGER HVAC SOILA JOHNS M.D. Performed By: #### V [id number], GLU #### [facility] [address] Vitamin D+Metabolites [Mass/ volume] in Serum or PlasmaOrdered By: Kady Stout on 06-26-2024 Vitamin D+Metabolites [Mass/Vol] 17.6 ng/mL Low 30-100 [facility] Comment on above: VITAMIN D STATUS 25( [place])VITAMIN D RANGE (ng/mL) Deficient <20 Insufficient 20 to <30Sufficient 30 to 100Reference: Juan Ospina, Brigido CHRISTIANSON, et al. Evaluation,treatment, and prevention of vitamin D deficiency; an Endocrine Society clinical practice guideline. JCEM. 2010; 96(7):1911-30. No Panel InformationOrdered By: Jesika Jiménez on 06-18-2024 Quick Strep (POC) [facility] Quick Strep (POC) [facility] Throat Cultureon 06-18-2024 Throat culture ORGANISM: Yu albicans (O:CANALB) Quantity of Growth Heavy Growth PERFORMED BY: [place] [id number] PATHOLOGIST MANAGER HVAC SOILA JOHNS M.D. Normal [facility] Comment on above: Performed By: #### C UT ####[facility] [id number] [place] [id number] [facility] No Panel Informationon 06-14 [facility] XR chest 2V*on 05-29-2024 XR chest 2V* [facility] [address] [place] [address] [place] [address] XRay Report Signed Patient: Pranav Eric MR#: [id number] : 1975 Acct:[id number] Age/Sex: 49 / F ADM Date: 05/29/24 Loc: XDUCLY Room: Type: [facility] Attending Dr: Negin De APRN Copies to: Negin De APRN Ordering Provider: Negin De APRN Date of Service: 05/29/24 XR/XR chest 2V*: COUGH Plain film chest 2 view HISTORY: Dry cough for one week COMPARISON: None FINDINGS: SUPPORT DEVICES: None POSTSURGICAL CHANGES: None HEART: Within normal limits PULMONARY TRAM: Within normal limits MEDIASTINUM: Unremarkable LUNGS AND PLEURA: No acute lung process, pleural effusion or pneumothorax identified. BONY STRUCTURES: Intact ADDITIONAL FINDINGS None XR/XR chest 2V* IMPRESSION: No acute process. Impression dictated by: Petros Sethi M.D.05/29/2024 10:42 AM Dictation Location: [place] [address] Transcribed By: [facility] 05/29/24 1042 Dictated By: Petros Sethi DO 05/29/24 1042 Signed By: 05/29/24 1042 Normal [facility] Bacteria [Presence] in Urine by AutomatedOrdered By: Jaya Abdi on 05-17-2024 Bacteria Auto Ql (U) None seen [HPF] None Seen [facility] [facility] Bilirubin Test strip Ql (U)O rdered By: Jaya Abdi on 05-17-2024 Bilirubin Ql (U) Negative Negative [facility] Color of Urine by AutoOrdere d By: Jaya Abdi on 05-17-2024 Color (U) Light-yellow Normal Yellow [facility] Comment on above: Order Comment: Name Collection Type:: Clean-Voided Midstream Performed By: #### A DDONUAPLUS ####[facility] [id number] [place] [address] [place] Dipstick and Microscopicon 0 05-17-2024 Bacteria,Urine None Seen Normal None Seen [facility] Comment on above: Order Comment: Name Collection Type:: Clean-Voided Midstream Performed By: #### A DDONUAPLUS ####[address] [place] [address] [facility] Bilirubin,Urine Negative Normal Negative [facility] Comment on above: Order Comment: Name Collection Type:: Clean-Voided Midstream Performed By: #### A DDONUAPLUS ####[address] [address] [facility] Glucose Ql (U) Normal Normal Normal [facility] Comment on above: Order Comment: Name Collection Type:: Clean-Voided Midstream Performed By: #### A DDONUAPLUS ####[address] [address] [facility] Hyaline Casts,Urine None Normal 0-8 [facility] Comment on above: Order Comment: Name Collection Type:: Clean-Voided Midstream Performed By: #### A DDONUAPLUS ####[address] [address] [facility] Mucus,Urine Rare Normal [facility] Comment on above: Order Comment: Name Collection Type:: Clean-Voided Midstream Result Comment: PERF ORMED BY: [facility] [address] [place] [address] PATHOLOGIST MANAGER HVAC SOILA JOHNS M.D. Performed By: #### A DDONUAPLUS ####[address] [address] [facility] Nitrite,Urine Negative Normal Negative [facility] Comment on above: Order Comment: Name Collection Type:: Clean-Voided Midstream Performed By: #### A DDONUAPLUS ####[address] [address] [facility] Occult Blood,Urine 1+ High Negative [facility] Comment on above: Order Comment: Name Collection Type:: Clean-Voided Midstream Performed By: #### A DDONUAPLUS ####[address] [address] [facility] Protein,Urine Negative Normal Negative [facility] Comment on above: Order Comment: Name Collection Type:: Clean-Voided Midstream Performed By: #### A DDONUAPLUS ####[address] [address] [facility] RBC,Urine 3-4 Normal 0-4 [facility] Comment on above: Order Comment: Name Collection Type:: Clean-Voided Midstream Performed By: #### A DDONUAPLUS ####[place] [id number] [facility] Specificy [place],Urine 1.018 Normal 1.001-1.03 0 [facility] Comment on above: Order Comment: Name Collection Type:: Clean-Voided Midstream Performed By: #### A DDONUAPLUS ####[address] [address] [facility] Squamous Epithelial Cell,Urine 5-9 High 0-2 [facility] Comment on above: Order Comment: Name Collection Type:: Clean-Voided Midstream Performed By: #### A DDONUAPLUS ####[address] [address] [facility] Urobilinogen,Urine Normal Normal Normal [facility] Comment on above: Order Comment: Name Collection Type:: Clean-Voided Midstream Performed By: #### A DDONUAPLUS ####[address] [address] [facility] WBC,Urine 3-4 Normal 0-4 [facility] Comment on above: Order Comment: Name Collection Type:: Clean-Voided Midstream Performed By: #### A DDONUAPLUS ####[address] [address] [facility] Epithelial cells.squamous [# /area] in Urine sediment by Automated countOrdered By: Jaya Abdi on 05-17-2024 Epithelial cells.squamous Auto (Urine sed) [#/Area] 5-9 [HPF] High 0-2 [facility] Erythrocytes [#/area] in Uri ne sediment by Automated countOrdered By: Jaya Abdi on 05-17-2024 RBC Auto (Urine sed) [#/Area] 3-4 [HPF] 0-4 [facility] Glucose [Mass/volume] in Uri ne by Test stripOrdered By: Jaya Abdi on 05-17-2024 Glucose Test strip (U) [Mass/Vol] Normal mg/dL Normal [facility] Hemoglobin Test strip Ql (U) Ordered By: Jaya Abdi on 05-17-2024 Hemoglobin Ql (U) 1+ High Negative [facility] Hyaline casts [#/area] in Ur ine sediment by Automated countOrdered By: Jaya Abdi on 05-17-2024 Hyaline casts Auto (Urine sed) [#/Area] None [LPF] 0-8 [facility] Ketones [Presence] in Urine by Test stripOrdered By: Jaya Abdi on 05-17-2024 Ketones Ql (U) Negative Normal Negative [facility] Comment on above: Order Comment: Name Collection Type:: Clean-Voided Midstream Performed By: #### A DDONUAPLUS ####[address] Leukocyte esterase [Presence ] in Urine by Test stripOrdered By: Jaya Abdi on 05-17-2024 Leukocyte esterase Test strip Ql (U) Negative Normal Negative [facility] Comment on above: Order Comment: Name Collection Type:: Clean-Voided Midstream Performed By: #### A DDONUAPLUS ####[place] [address] [place] Leukocytes [#/area] in Urine sediment by Automated countOrdered By: Jaya Abdi on 05-17-2024 WBC Auto (Urine sed) [#/Area] 3-4 [HPF] 0-4 [facility] Mucus [Presence] in Urine by AutomatedOrdered By: Jaya Abdi on 05-17-2024 Mucus Auto Ql (U) Rare [LPF] [facility] Nitrite Test strip Ql (U)Ord ered By: Jaya Abdi on 05-17-2024 Nitrite Ql (U) Negative Negative [facility] Protein Test strip (U) [Mass /Vol]Ordered By: Jaya Abdi on 05-17-2024 Protein (U) [Mass/Vol] Negative Negative [facility] Specific gravity Test strip (U) [Rel density]Ordered By: Jaya Clementmarina on 05-17-2024 Specific gravity (U) [Rel density] 1.018 1.001-1.03 0 [facility] Urine appearanceOrdered By: Jaya Clementmarina on 05-17-2024 Appearance (U) Clear Normal Clear [facility] Comment on above: Order Comment: Name Collection Type:: Clean-Voided Midstream Performed By: #### A DDONUAPLUS ####[address] [place] [id number] [facility] Urobilinogen Test strip (U) [Mass/Vol]Ordered By: Jaya Abdi on 05-17-2024 Urobilinogen (U) [Mass/Vol] Normal mg/dL Normal [facility] pH of Urine by Test stripOrd ered By: Jaya Abdi on 05-17-2024 pH (U) 5.5 [pH] Normal 5.0-9.0 [facility] Comment on above: Order Comment: Name Collection Type:: Clean-Voided Midstream Performed By: #### A DDONUAPLUS ####[place] [id number] [facility] Automated basophil %Ordered By: Matthew Morley on 05-16-2024 Basophils/100 WBC (Bld) 0.5 % Normal . [facility] Comment on above: Performed By: #### P ILLAR BMP, PILLAR LIPID, PILLAR CBC, PILLAR TSH, EBS A1C ####[place] [id number] [facility] Automated basophil countOrde red By: Matthew Morley on 05-16-2024 Basophils (Bld) [#/Vol] 0.0 10*3/uL Normal 0.0-0.2 [facility] Comment on above: Result Comment: PERF ORMED BY: [facility] [address] [place] [id number] PATHOLOGIST MANAGER HVAC SOILA JOHNS M.D. Performed By: #### P ILLAR BMP, PILLAR LIPID, PILLAR CBC, PILLAR TSH, EBS A1C ####[address] Automated blood monocyte cou ntOrdered By: Matthew Morley on 05-16-2024 Monocytes (Bld) [#/Vol] 0.2 10*3/uL Normal 0.0-0.8 [facility] Comment on above: Performed By: #### P ILLAR BMP, PILLAR LIPID, PILLAR CBC, PILLAR TSH, EBS A1C ####[address] Automated eosinophil %Ordere d By: Matthew Morley on 05-16-2024 Eosinophils/100 WBC (Bld) 0.0 % Normal . [facility] Comment on above: Performed By: #### P ILLAR BMP, PILLAR LIPID, PILLAR CBC, PILLAR TSH, EBS A1C ####[address] Automated eosinophil countOr dered By: Matthew Morley on 05-16-2024 Eosinophils (Bld) [#/Vol] 0.0 10*3/uL Normal 0.0-0.45 [facility] Comment on above: Performed By: #### P ILLAR BMP, PILLAR LIPID, PILLAR CBC, PILLAR TSH, EBS A1C ####[address] Automated monocyte %Ordered By: Matthew Morley on 05-16-2024 Monocytes/100 WBC (Bld) 2.4 % Normal . [facility] Comment on above: Performed By: #### P ILLAR BMP, PILLAR LIPID, PILLAR CBC, PILLAR TSH, EBS A1C ####[address] Automated neutrophil %Ordere d By: Matthew Morley on 05-16-2024 Neutrophils/100 WBC (Bld) 87.5 % Normal . [facility] Comment on above: Performed By: #### P ILLAR BMP, PILLAR LIPID, PILLAR CBC, PILLAR TSH, EBS A1C ####[address] [place] [address] [facility] Calcium [Mass/volume] in Ser um or PlasmaOrdered By: Matthew Morley on 05-16-2024 Calcium [Mass/Vol] 9.2 mg/dL Normal 8.6-10.3 [facility] Comment on above: Performed By: #### P ILLAR BMP, PILLAR LIPID, PILLAR CBC, PILLAR TSH, EBS A1C ####[place] [id number] [facility] Carbon dioxide, total [Moles /volume] in Serum or PlasmaOrdered By: Matthew Molrey on 05-16-2024 CO2 [Moles/Vol] 26.8 mmol/L Normal 21.0-31.0 [facility] Comment on above: Performed By: #### P ILLAR BMP, PILLAR LIPID, PILLAR CBC, PILLAR TSH, EBS A1C ####[place] [id number] [facility] Chloride [Moles/volume] in S lazaro or PlasmaOrdered By: Matthew Morley on 05-16-2024 Chloride [Moles/Vol] 101 mmol/L Normal 98-107 [facility] Comment on above: Performed By: #### P ILLAR BMP, PILLAR LIPID, PILLAR CBC, PILLAR TSH, EBS A1C ####[place] [id number] [facility] Cholesterol [Mass/volume] in Serum or PlasmaOrdered By: Matthew Morley on 05-16-2024 Cholesterol [Mass/Vol] 181 mg/dL Normal 140-200 [facility] [place] Comment on above: Chol less than 200 m g/dl low riskChol 201-239 mg/dl borderline riskChol 240 mg/dl and greater high risk Result Comment: Chol less than 200 mg/dl low risk Chol 201-239 mg/dl borderline risk Chol 240 mg/dl and greater high risk Performed By: #### P ILLAR BMP, PILLAR LIPID, PILLAR CBC, PILLAR TSH, EBS A1C ####[address] [address] [facility] Cholesterol in LDL Calc [Mas s/Vol]Ordered By: Matthew Morley on 05-16-2024 Cholesterol in LDL [Mass/Vol] 79 mg/dL 0-100 [facility] Comment on above: LDL ATP III CLASSIFI CATIONLDL less than 100 mg/dL OptimalLDL 100-129 mg/dL Near or above optimalLDL 130-159 mg/dL Borderline highLDL 160-189 mg/dL HighLDL greater than 189 mg/dL Very high Cholesterol in VLDL Calc [Ma ss/Vol]Ordered By: Matthew Morley on 05-16-2024 Cholesterol in VLDL [Mass/Vol] 49 mg/dL [facility] Complement C3on 05-16-2024 Complement C3 164 mg/dL Normal 82-167 [facility] Comment on above: Result Comment: Perf ormed at: - [facility] [address] [id number] Orthopaedic General: Leonard Moreno PhD, Phone: [phone] Performed By: #### C 4, C3 ####[facility] ,#### ESR ####[address] Complement C4on 05-16-2024 Complement C4 30 mg/dL Normal 12-38 [facility] Comment on above: Result Comment: PERF ORMED BY: [facility] [address] [place] [address] PATHOLOGIST MANAGER HVAC SOILA JOHNS M.D. Performed By: #### C 4, C3 ####[facility] ,#### ESR ####[address] Creatinine [Mass/volume] in Serum or PlasmaOrdered By: Matthew Morley on 05-16-2024 Creatinine [Mass/Vol] 1.00 mg/dL Normal 0.60-1.20 [facility] Comment on above: Performed By: #### P ILLAR BMP, PILLAR LIPID, PILLAR CBC, PILLAR TSH, EBS A1C ####[address] EBS A1C with [address]imated [address] galvez 05-16-2024 Glucose [Mass/Vol] 123 mg/dL Normal [facility] Comment on above: Result Comment: PERF ORMED BY: [facility] [address] [place] [address] PATHOLOGIST MANAGER HVAC SOILA JOHNS M.D. Performed By: #### P ILLAR BMP, PILLAR LIPID, PILLAR CBC, PILLAR TSH, EBS A1C ####[address] EBS A1C with Estimated [address] luOrdered By: Matthew Morley on 05-16-2024 HbA1c (Bld) [Mass fraction] 5.9 % High 4.3-5.6 [facility] Comment on above: Increased risk for d iabetes: 5.7 - 6.4diabetes: >6.4glycemic control for adults with diabetes: <7.0 Result Comment: Incr eased risk for diabetes: 5.7 - 6.4 diabetes: >6.4 glycemic control for adults with diabetes: <7.0 Performed By: #### P ILLAR BMP, PILLAR LIPID, PILLAR CBC, PILLAR TSH, EBS A1C ####[address] [address] Employee Basic Metabolic [employer] geovanna 05-16-2024 GFR/1.73 sq M.predicted MDRD (S/P/Bld) [Vol rate/Area] mL/min/{1.73_m2} Normal [facility] Comment on above: Performed By: #### P ILLAR BMP, PILLAR LIPID, PILLAR CBC, PILLAR TSH, EBS A1C ####[address] Employee Complete Blood Coun ton 05-16-2024 Mean Corpuscular HGB Conc 33.7 g/dL Normal 32.0-35.0 [facility] Comment on above: Performed By: #### P ILLAR BMP, PILLAR LIPID, PILLAR CBC, PILLAR TSH, EBS A1C ####[address] NRBC% 0.0 /100{WBC} Normal 0-0.5 [facility] Comment on above: Performed By: #### P ILLAR BMP, PILLAR LIPID, PILLAR CBC, PILLAR TSH, EBS A1C ####[address] [place] [id number] [facility] Employee Lipid Profileon LDL Cholesterol,Calculated 79 mg/dL Normal 0-100 [facility] Comment on above: Result Comment: LDL ATP III CLASSIFICATION LDL less than 100 mg/dL Optimal LDL 100-129 mg/dL Near or above optimal LDL 130-159 mg/dL Borderline high LDL 160-189 mg/dL High LDL greater than 189 mg/dL Very high Performed By: #### P ILLAR BMP, PILLAR LIPID, PILLAR CBC, PILLAR TSH, EBS A1C ####[address] Triglyceride w/Reflex 249 mg/dL High 0-149 [facility] Comment on above: Result Comment: TRIG ATP III CLASSIFICATION TRIG less than 150 mg/dL Normal TRIG 150-199 mg/dL Borderline high TRIG 200-500 mg/dL High TRIG greater than 500 mg/dL Very high Standard traceable to the Center for Disease Conrtrol and Prevention (CDC) test method. Performed By: #### P ILLAR BMP, PILLAR LIPID, PILLAR CBC, PILLAR TSH, EBS A1C ####[address] VLDL CHOLESTEROL 49 mg/dL Normal [facility] Comment on above: Performed By: #### P ILLAR BMP, PILLAR LIPID, PILLAR CBC, PILLAR TSH, EBS A1C ####[place] [id number] [facility] Employee Thyroid Stim Hormon magalys 05-16-2024 Employee Thyroid Stim Hormone 1.21 u[iU]/mL Normal 0.45-5.33 [facility] Comment on above: Result Comment: PERF ORMED BY: [facility] [address] [place] [id number] PATHOLOGIST MANAGER HVAC SOILA JOHNS M.D. Performed By: #### P ILLAR BMP, PILLAR LIPID, PILLAR CBC, PILLAR TSH, EBS A1C ####[place] [id number] [facility] Erythrocyte Sedimentation Ra miles 05-16-2024 ESR (Bld) [Velocity] 14 mm/h Normal 0-29 [facility] Comment on above: Result Comment: PERF ORMED BY: [facility] [address] [id number] PATHOLOGIST MANAGER HVAC SOILA JOHNS M.D. Performed By: #### C 4, C3 ####[facility] ,#### ESR ####[address] [place] [id number] [facility] Erythrocyte distribution wid th [Ratio] by Automated countOrdered By: Matthew Morley on 05-16-2024 Erythrocyte distribution width (RBC) [Ratio] 13.6 % Normal 11.9-15.3 [facility] Comment on above: Performed By: #### P ILLAR BMP, PILLAR LIPID, PILLAR CBC, PILLAR TSH, EBS A1C ####[address] Erythrocyte sedimentation ra te by Photometric methodOrdered By: Jaya Abdi on 05-16-2024 ESR Photometric method (Bld) [Velocity] 14 mm/hr 0-29 [facility] Erythrocytes [#/volume] in B lood by Automated countOrdered By: Matthew Morley on 05-16-2024 RBC (Bld) [#/Vol] 4.79 10*6/uL Normal 3.60-5.00 [facility] Comment on above: Performed By: #### P ILLAR BMP, PILLAR LIPID, PILLAR CBC, PILLAR TSH, EBS A1C ####[place] [address] [place] [id number] [facility] Glucose [Mass/volume] in Ser um or PlasmaOrdered By: Matthew Morley on 05-16-2024 Glucose [Mass/Vol] 141 mg/dL High 70-100 [facility] Comment on above: ADA recommended refe rence range Result Comment: ADA recommended reference range Performed By: #### P ILLAR BMP, PILLAR LIPID, PILLAR CBC, PILLAR TSH, EBS A1C ####[address] [place] [address] [facility] Glucose mean value [Mass/vol ume] in Blood Estimated from glycated hemoglobinOrdered By: Matthew Morley on 05-16-2024 Average glucose Estimated from glycated hemoglobin (Bld) [Mass/Vol] 123 mg/dL [facility] Hematocrit [Volume Fraction] of Blood by Automated countOrdered By: Matthew Morley on 05-16-2024 Hematocrit (Bld) [Volume fraction] 42.9 % Normal 34.0-46.4 [facility] Comment on above: Performed By: #### P ILLAR BMP, PILLAR LIPID, PILLAR CBC, PILLAR TSH, EBS A1C ####[address] [place] [id number] [facility] Hemoglobin [Mass/volume] in BloodOrdered By: Matthew Morley on 05-16-2024 Hemoglobin (Bld) [Mass/Vol] 14.5 g/dL Normal 11.8-15.4 [facility] Comment on above: Performed By: #### P ILLAR BMP, PILLAR LIPID, PILLAR CBC, PILLAR TSH, EBS A1C ####[place] [id number] [facility] Leukocytes [#/volume] correc yvrose for nucleated erythrocytes in Blood by Automated counOrdered By: Matthew Morley on 05-16-2024 WBC corrected for nucl RBC Auto (Bld) [#/Vol] 8.7 10*3/uL 3.8-11.6 [facility] Leukocytes [#/volume] in Blo od by Automated countOrdered By: Matthew Morley on 05-16-2024 WBC (Bld) [#/Vol] 8.7 10*3/uL Normal 3.8-11.6 [facility] Comment on above: Performed By: #### P ILLAR BMP, PILLAR LIPID, PILLAR CBC, PILLAR TSH, EBS A1C ####[place] [id number] [place] Lymphocytes [#/volume] in Bl ood by Automated countOrdered By: Matthew Morley on 05-16-2024 Lymphocytes (Bld) [#/Vol] 0.8 10*3/uL Low 1.00-4.8 [facility] Comment on above: Performed By: #### P ILLAR BMP, PILLAR LIPID, PILLAR CBC, PILLAR TSH, EBS A1C ####[facility] [id number] Lymphocytes/100 leukocytes i n Blood by Automated countOrdered By: Matthew Morley on 05-16-2024 Lymphocytes/100 WBC (Bld) 9.6 % Normal . [facility] Comment on above: Performed By: #### P ILLAR BMP, PILLAR LIPID, PILLAR CBC, PILLAR TSH, EBS A1C ####[address] MCH [Entitic mass] by Automa yvrose countOrdered By: Matthew Morley on 05-16-2024 MCH (RBC) [Entitic mass] 30.2 pg Normal 24.7-34.3 [facility] Comment on above: Performed By: #### P ILLAR BMP, PILLAR LIPID, PILLAR CBC, PILLAR TSH, EBS A1C ####[address] MCHC Auto (RBC) [Mass/Vol]Or dered By: Matthew Morley on 05-16-2024 MCHC (RBC) [Mass/Vol] 33.7 g/dL 32.0-35.0 [facility] MCV [Entitic volume] by Auto mated countOrdered By: Matthew Morley on 05-16-2024 MCV (RBC) [Entitic vol] 89.6 fL Normal 80-100 [facility] Comment on above: Performed By: #### P ILLAR BMP, PILLAR LIPID, PILLAR CBC, PILLAR TSH, EBS A1C ####[address] Neutrophils [#/volume] in Bl ood by Automated countOrdered By: Matthew Morley on 05-16-2024 Neutrophils (Bld) [#/Vol] 7.6 10*3/uL Normal 1.8-7.7 [facility] Comment on above: Performed By: #### P ILLAR BMP, PILLAR LIPID, PILLAR CBC, PILLAR TSH, EBS A1C ####[place] [address] No Panel InformationOrdered By: Matthew Morley on 05-16-2024 Estimated GFR (CKD-EPI) > 60.0 mL/Min [facility] Creatinine Clearance (Chem N/A [facility] Nucleated erythrocytes [Pres ence] in Blood by Automated countOrdered By: Matthew Morley on 05-16-2024 Nucleated RBC Auto Ql (Bld) 0.0 /100{WBC} 0-0.5 [facility] Platelet mean volume [Entiti c volume] in Blood by Automated countOrdered By: Matthew Morley on 05-16-2024 Platelet mean volume (Bld) [Entitic vol] 8.4 fL Normal 6.3-10.7 [facility] Comment on above: Performed By: #### P ILLAR BMP, PILLAR LIPID, PILLAR CBC, PILLAR TSH, EBS A1C ####[address] Platelets [#/volume] in Bloo d by Automated countOrdered By: Matthew Morley on 05-16-2024 Platelets (Bld) [#/Vol] 356 10*3/uL Normal 150-450 [facility] Comment on above: Performed By: #### P ILLAR BMP, PILLAR LIPID, PILLAR CBC, PILLAR TSH, EBS A1C ####[address] Potassium [Moles/volume] in Serum or PlasmaOrdered By: Matthew Morley on 05-16-2024 Potassium [Moles/Vol] 4.0 mmol/L Normal 3.5-5.1 [facility] Comment on above: Performed By: #### P ILLAR BMP, PILLAR LIPID, PILLAR CBC, PILLAR TSH, EBS A1C ####[address] Serum or plasma anion gap de terminationOrdered By: Matthew Morley on 05-16-2024 Anion gap [Moles/Vol] 14.2 mmol/L Normal 6.0-15.0 [facility] Comment on above: Performed By: #### P ILLAR BMP, PILLAR LIPID, PILLAR CBC, PILLAR TSH, EBS A1C ####[facility] [id number] Serum or plasma complement C 3 measurement (mass/volume)Ordered By: Jaya Abdi on 05-16-2024 Complement C3 [Mass/Vol] 164 mg/dL 82-167 [facility] Comment on above: Performed at: [address] [id number] Director: Leonard Moreno PhD, Phone: [phone] Serum or plasma complement C 4 measurement (mass/volume)Ordered By: Jaya Abdi on 05-16-2024 Complement C4 [Mass/Vol] 30 mg/dL 12-38 [facility] Serum or plasma high density lipoprotein (HDL) cholesterol measurementOrdered By: Matthew Morley on 05-16-2024 Cholesterol in HDL [Mass/Vol] 52 mg/dL Normal 23-92 [facility] Comment on above: HDL CHOL ATP-III CLA SSIFICATION Cardiovascular RiskHDL > or equal to 60 mg/dL LOWHDL < 40 mg/dL HIGH Result Comment: HDL CHOL ATP-III CLASSIFICATION Cardiovascular Risk HDL > or equal to 60 mg/dL LOW HDL < 40 mg/dL HIGH Performed By: #### P ILLAR BMP, PILLAR LIPID, PILLAR CBC, PILLAR TSH, EBS A1C ####[facility] [id number] [address] Serum or plasma total choles terol/high density lipoprotein (HDL) cholesterol mass ratOrdered By: Matthew Morley on 05-16-2024 Cholesterol.total/Chol esterol in HDL [Mass ratio] 3.5 {ratio} Normal <5.0 [facility] Comment on above: Performed By: #### P ILLAR BMP, PILLAR LIPID, PILLAR CBC, PILLAR TSH, EBS A1C ####[place] [address] Sodium [Moles/volume] in Ser um or PlasmaOrdered By: Matthew Morley on 05-16-2024 Sodium [Moles/Vol] 138 mmol/L Normal 136-145 [facility] Comment on above: Performed By: #### P ILLAR BMP, PILLAR LIPID, PILLAR CBC, PILLAR TSH, EBS A1C ####[facility] [id number] [address] Thyrotropin [Units/volume] i n Serum or PlasmaOrdered By: Matthew Morley on 05-16-2024 TSH Qn 1.21 m[IU]/L 0.45-5.33 [facility] Triglyceride [Mass/volume] i n Serum or PlasmaOrdered By: Matthew Morley on 05-16-2024 Triglyceride [Mass/Vol] 249 mg/dL High 0-149 [facility] Comment on above: TRIG ATP III CLASSIF ICATIONTRIG less than 150 mg/dL NormalTRIG 150-199 mg/dL Borderline highTRIG 200-500 mg/dL High TRIG greater than 500 mg/dL Very highStandard traceable to the Center for Disease Conrtrol and Prevention (CDC) test method. Urea nitrogen [Mass/volume] in Serum or PlasmaOrdered By: Matthew Morley on 05-16-2024 Urea nitrogen [Mass/Vol] 12 mg/dL Normal 7-25 [facility] Comment on above: Performed By: #### P ILLAR BMP, PILLAR LIPID, PILLAR CBC, PILLAR TSH, EBS A1C ####[facility] US breast RT limitedon 04-17 US breast RT limited [facility] [address] [place] [address] [place] [address] Ultrasound Report Signed Patient: Pranav Eric MR#: [id number] : 1975 Acct:[id number] Age/Sex: 49 / F ADM Date: 04/17/24 Loc: [facility] Room: Type: [facility] Attending Dr: Kady Stout MD Ordering Provider: Kady Stout MD Date of Service: 04/17/24 US/US breast RT limited: R92.8 - Other abnormal and inconclusive findings on diagn... Copies to: Kady Stout MD CLINICAL DATA: Six-month follow-up septated cyst right breast LIMITED right BREAST ULTRASOUND COMPARISON:Right breast ultrasound to 2023 FINDINGS: Once again demonstrated is a septated cyst at the 6:00 position of the right breast approximately 8 cm from the nipple measuring 10 x 6 x 5 mm grossly unchanged in size and configuration compared to the prior ultrasound study. No solid mass is noted. US/US breast RT limited IMPRESSION: NO ULTRASOUND EVIDENCE OF MALIGNANCY. Patient should return in October 2024 for bilateral screening mammography. RESULT CODE: 2 Benign Findings(s) Management of a palpable abnormality must be based on clinical grounds. Patient was entered into a reminder system with a target due date for the next mammogram. Impression dictated by: Nitish Scott Jr., D.OJesusita04/17/2024 11:46 AM Dictation Location: [facility] Tech: Myra Navdeep Transcribed By: DONAL 04/17/24 1146 Dictated By: Nitish Scott Jr, DO 04/17/24 1144 Signed By: 04/17/24 1146 Normal [facility] Alanine aminotransferase [En zymatic activity/volume] in Serum or PlasmaOrdered By: Matthew Morley on 04-25-2023 ALT [Catalytic activity/Vol] 14 U/L 7-52 [facility] Albumin [Mass/volume] in Ser um or Plasma by Bromocresol green (BCG) dye binding methoOrdered By: Matthew Morley on 04-25-2023 Albumin BCG dye [Mass/Vol] 4.4 g/dL 3.5-5.7 [facility] Alkaline phosphatase [Enzyma tic activity/volume] in Serum or PlasmaOrdered By: Matthew Morley on 04-25-2023 ALP [Catalytic activity/Vol] 51 U/L 34-104 [facility] Aspartate aminotransferase [ Enzymatic activity/volume] in Serum or PlasmaOrdered By: Matthew Morley on 04-25-2023 AST [Catalytic activity/Vol] 14 U/L 13-39 [facility] Bilirubin.total [Mass/volume ] in Serum or PlasmaOrdered By: Matthew Morley on 04-25-2023 Bilirubin [Mass/Vol] 0.4 mg/dL 0.3-1.0 [facility] Calcium [Mass/volume] in Ser um or PlasmaOrdered By: Matthew Morley on 04-25-2023 Calcium [Mass/Vol] 9.0 mg/dL 8.6-10.3 [facility] Carbon dioxide, total [Moles /volume] in Serum or PlasmaOrdered By: Matthew Morley on 04-25-2023 CO2 [Moles/Vol] 24.9 mmol/L 21.0-31.0 [facility] Chloride [Moles/volume] in S lazaro or PlasmaOrdered By: Matthew Morley on 04-25-2023 Chloride [Moles/Vol] 102 mmol/L 98-107 [facility] Cholesterol [Mass/volume] in Serum or PlasmaOrdered By: Matthew Morley on 04-25-2023 Cholesterol [Mass/Vol] 235 mg/dL 140-200 [facility] Comment on above: Chol less than 200 m g/dl low riskChol 201-239 mg/dl borderline riskChol 240 mg/dl and greater high risk Cholesterol in LDL Calc [Mas s/Vol]Ordered By: Matthew Morley on 04-25-2023 Cholesterol in LDL [Mass/Vol] 147 mg/dL 0-100 [facility] Comment on above: LDL ATP III CLASSIFI CATIONLDL less than 100 mg/dL OptimalLDL 100-129 mg/dL Near or above optimalLDL 130-159 mg/dL Borderline highLDL 160-189 mg/dL HighLDL greater than 189 mg/dL Very high Cholesterol in VLDL Calc [Ma ss/Vol]Ordered By: Matthew Morley on 04-25-2023 Cholesterol in VLDL [Mass/Vol] 40 mg/dL [facility] Creatinine [Mass/volume] in Serum or PlasmaOrdered By: Matthew Morley on 04-25-2023 Creatinine [Mass/Vol] 0.68 mg/dL 0.60-1.20 [facility] Globulin Calc (S) [Mass/Vol] Ordered By: Matthew Morley on 04-25-2023 Globulin (S) [Mass/Vol] 2.6 g/dL [facility] Glucose [Mass/volume] in Ser um or PlasmaOrdered By: Matthew Morley on 04-25-2023 Glucose [Mass/Vol] 86 mg/dL 70-100 [facility] No Panel InformationOrdered By: Matthew Morley on 04-25-2023 Estimated GFR (CKD-EPI) > 60.0 mL/Min [facility] Creatinine Clearance (Chem N/A [facility] Potassium [Moles/volume] in Serum or PlasmaOrdered By: Matthew Morley on 04-25-2023 Potassium [Moles/Vol] 4.4 mmol/L 3.5-5.1 [facility] Protein [Mass/volume] in Ser um or PlasmaOrdered By: Matthew Morley on 04-25-2023 Protein [Mass/Vol] 7.0 g/dL 6.4-8.9 [facility] Serum or plasma albumin/glob ulin mass ratioOrdered By: Matthew Morley on 04-25-2023 Albumin/Globulin [Mass ratio] 1.7 {ratio} [facility] Serum or plasma anion gap de terminationOrdered By: Matthew Morley on 04-25-2023 Anion gap [Moles/Vol] 14.5 mmol/L 6.0-15.0 [facility] Serum or plasma high density lipoprotein (HDL) cholesterol measurementOrdered By: Matthew Morley on 04-25-2023 Cholesterol in HDL [Mass/Vol] 48 mg/dL 23-92 [facility] Comment on above: HDL CHOL ATP-III CLA SSIFICATION Cardiovascular RiskHDL > or equal to 60 mg/dL LOWHDL < 40 mg/dL HIGH Serum or plasma total choles terol/high density lipoprotein (HDL) cholesterol mass ratOrdered By: Matthew Morley on 04-25-2023 Cholesterol.total/Chol esterol in HDL [Mass ratio] 4.9 {ratio} <5.0 [facility] Sodium [Moles/volume] in Ser um or PlasmaOrdered By: Matthew Morley on 04-25-2023 Sodium [Moles/Vol] 137 mmol/L 136-145 [facility] Triglyceride [Mass/volume] i n Serum or PlasmaOrdered By: Matthew Morley on 04-25-2023 Triglyceride [Mass/Vol] 200 mg/dL 0-149 [facility] Comment on above: TRIG ATP III CLASSIF ICATIONTRIG less than 150 mg/dL NormalTRIG 150-199 mg/dL Borderline highTRIG 200-500 mg/dL High TRIG greater than 500 mg/dL Very highStandard traceable to the Center for Disease Conrtrol and Prevention (CDC) test method. Urea nitrogen [Mass/volume] in Serum or PlasmaOrdered By: Matthew Morley on 04-25-2023 Urea nitrogen [Mass/Vol] 12 mg/dL 7-25 [facility] Quick Strepon 06-20-2022 S. pyogenes Org specific cx Ql (Throat) Negative [facility] Other Quick Strep [facility] Other SARS-CoV-2 (COVID-19) RNA NA A+probe Ql (Resp)on 06-20-2022 SARS-CoV-2 (COVID-19) RNA BRICE+probe Ql (Unsp spec) Positive [facility] Other Cytologyon 09-28-2020 Cytology (NOTE) INTERPRETATION Cervical material, (ThinPrep vial, Imaging-assisted review): Specimen Adequacy: Satisfactory for evaluation. - Endocervical/transformati on zone component present. Descriptive Diagnosis: Negative for intraepithelial lesion or malignancy. Trichomonas vaginalis present. Remote Encoding Operations Supervisor: WEN VARGAS(ASCP) Electronically Signed Out ey/10/08/2020 Source: 1: Cervical material, (ThinPrep vial, Imaging-assisted review) Clinical History Z01.419 Routine nurse obgyn exam without abnormal findings High Risk HPV DNA testing is requested if the diagnosis is ASC-US GYNECOLOGIC CYTOLOGY REPORT Patient Name: PRANAV ERIC Med Rec: [id number] Path Number: [id number] [facility] [employer] ANATOMIC PATHOLOGY [address] [place] [id number] Normal [facility] Comment on above: Performed By: #### P PPVP #### [address] [place] [id number] Orthopaedic General: Humberto Gallego MD Vital Signs Date Time Vital Sign Value Performing Clinician Facility 04-01-2025 16:55-0400 Diastolic blood pressure 81 mm[Hg] Kady Stout MD Work Phone: [facility] 04-01-2025 16:55-0400 Heart rate 88 /min Kady Stout MD Work Phone: [facility] 04-01-2025 16:55-0400 Respiratory rate 18 /min Kady Stout MD Work Phone: [facility] 04-01-2025 16:55-0400 SaO2% (BldA) [Mass fraction] 99 % Kady Stout MD Work Phone: [facility] 04-01-2025 16:55-0400 Systolic blood pressure 128 mm[Hg] Kady Stout MD Work Phone: [facility] 04-01-2025 14:21-0400 Body temperature 98.7 [degF] Kady Stout MD Work Phone: [facility] 01-22-2025 08:28-0400 Body height 161.29 cm [facility] 01-22-2025 08:28-0400 Body mass index (BMI) [Ratio] 33.8 kg/m2 [facility] 01-22-2025 08:28-0400 Body weight 87.99 kg [facility] 01-22-2025 08:28-0400 Diastolic blood pressure 80 mm[Hg] [facility] 01-22-2025 08:28-0400 Heart rate 80 /min [facility] 01-22-2025 08:28-0400 Systolic blood pressure 126 mm[Hg] [facility] 06-20-2024 13:30-0400 Body mass index (BMI) [Ratio] 34.7 kg/m2 MD Kady Stout Work Phone: [facility] 06-20-2024 13:30-0400 Diastolic blood pressure 72 mm[Hg] MD Kady Stout Work Phone: [facility] 06-20-2024 13:30-0400 Heart rate 91 /min MD Kady Stout Work Phone: [facility] 06-20-2024 13:30-0400 Respiratory rate 16 /min MD Kady Stout Work Phone: [facility] 06-20-2024 13:30-0400 SaO2% (BldA) [Mass fraction] 98 % MD Kady Stout Work Phone: [facility] 06-20-2024 13:30-0400 Systolic blood pressure 124 mm[Hg] MD Kady Stout Work Phone: [facility] 06-20-2024 10:42-0400 Body height 161.29 cm MD Kady Stout Work Phone: [facility] 06-20-2024 10:42-0400 Body weight 90.49 kg MD Kady Stout Work Phone: [facility] 06-18-2024 12:28-0400 Body height 161.29 cm MD Kady Stout Work Phone: [facility] 06-18-2024 12:28-0400 Body mass index (BMI) [Ratio] 34.9 kg/m2 MD Kady Stout Work Phone: [facility] 06-18-2024 12:28-0400 Body temperature 99.2 [degF] MD Kady Stout Work Phone: [facility] 06-18-2024 12:28-0400 Body weight 90.83 kg MD Kady Stout Work Phone: [facility] 06-18-2024 12:28-0400 Diastolic blood pressure 90 mm[Hg] MD Kady Stout Work Phone: [facility] 06-18-2024 12:28-0400 Heart rate 105 /min MD Kady Stout Work Phone: [facility] 06-18-2024 12:28-0400 Respiratory rate 17 /min MD Kady Stout Work Phone: [facility] 06-18-2024 12:28-0400 SaO2% (BldA) [Mass fraction] 96 % MD Kady Stout Work Phone: [facility] 06-18-2024 12:28-0400 Systolic blood pressure 144 mm[Hg] MD Kady Stout Work Phone: [facility] 06-03-2024 11:28-0400 Body height 160.02 cm MD Kday Stout Work Phone: [facility] 06-03-2024 11:28-0400 Body mass index (BMI) [Ratio] 34.9 kg/m2 MD Kady Stout Work Phone: [facility] 06-03-2024 11:28-0400 Body temperature 98.3 [degF] MD Kady Stout Work Phone: [facility] 06-03-2024 11:28-0400 Body weight 89.41 kg MD Kady Stout Work Phone: [facility] 06-03-2024 11:28-0400 Diastolic blood pressure 75 mm[Hg] MD Kady Stout Work Phone: [facility] 06-03-2024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
== END 2025-04-10 11:02 | disposition home or self-care (01) ==
PROVIDERS: PCP Family Medicine; Visit Provider Family Medicine
DX: M79.642 Pain in left hand (principal); M79.644 Pain in right finger(s)
CPT/HCPCS: 73110; 73130; 73140